=== PATIENT | male | born 1945 | race Caucasian/White ===

== ENCOUNTER 2018-01-20 13:48 | Emergency (ER) | payer MEDICARE, MEDICAID ==
[~2018-01-20] VITALS: Ht 172.7 cm; Wt 98.0 kg
[~2018-01-20 13:48] MED LIST: ALBU8HFA PO; ASPI-1053 PO; BUPR150T8 PO; CANA300T PO; CHOL500044 PO; CLON-527 PO; FENO54TA PO; INSU100C4 SQ; LANTUS SQ; LIRA0.6P2 SUBCUT; LISI2.5T2 PO; METF-950 PO; PANT-47 PO; ROSU20TA PO; TAMS0.4C32 PO; TEMA30CA5 PO
[2018-01-20] MEDS ORDERED: HYDROcodone/acetaminophen 5mg/325mg tablet PO ONE (15:35)
[2018-01-20 16:52] LABS: BASOPHILS # (AUTO) 0.1 X10'3 (0-0.2); BASOPHILS % (AUTO) 1.4 % (0-1); EOSINOPHILS # (AUTO) 0.1 X10'3 (0-0.9); EOSINOPHILS % (AUTO) 1.1 % (0-6); HEMATOCRIT 38.2 % (42.0-52.0); HEMOGLOBIN 12.8 g/dl (14.0-17.9); LYMPHOCYTES # (AUTO) 2.5 X10'3 (1.1-4.8); LYMPHOCYTES % (AUTO) 26.4 % (21-51); MEAN CORPUSCULAR HEMOGLOBIN 28.1 PG (27.0-31.0); MEAN CORPUSCULAR HGB CONC 33.5 % (33.0-36.5); MEAN CORPUSCULAR VOLUME 83.8 FL (78-98); MEAN PLATELET VOLUME 7.1 FL (7.4-10.4); MONOCYTES # (AUTO) 0.8 X10'3 (0-0.9); MONOCYTES % (AUTO) 8.9 % (2-12); NEUTROPHILS % (AUTO) 62.2 % (42-75); PLATELET COUNT 323 X10'3 (140-440); RED BLOOD COUNT 4.55 X10'6 (4.70-6.10); RED CELL DISTRIBUTION WIDTH 13.8 % (11.5-14.5); WHITE BLOOD COUNT 9.6 X10'3 (4.5-11.0)
[2018-01-20 17:02] LABS: INR 1.1 INR; PARTIAL THROMBOPLASTIN TIME 28 SECONDS (22-32); PROTHROMBIN TIME 11.2 SECONDS (9.0-12.0)
[2018-01-20 17:05] LABS: ALANINE AMINOTRANSFERASE 19 U/L (12-78); ALBUMIN 3.4 G/DL (3.4-5.0); ALBUMIN/GLOBULIN RATIO 0.9 (1.1-1.5); ALKALINE PHOSPHATASE 100 IU/L (46-116); ANION GAP 9 (8-16); ASPARTATE AMINO TRANSFERASE 17 U/L (10-37); BILIRUBIN,TOTAL 0.5 MG/DL (0.1-1.0); BLOOD UREA NITROGEN 28 MG/DL (7-18); BUN/CREATININE RATIO 28.3 (5.4-32.0); C-REACTIVE PROTEIN 0.63 MG/DL (0.0-0.5); CHLORIDE 97 MMOL/L (99-107); CREATININE 0.99 MG/DL (0.60-1.10); GLUCOSE 90 MG/DL (70-104); POTASSIUM 4.3 MMOL/L (3.5-5.1); SODIUM 132 MMOL/L (135-145); TOTAL CARBON DIOXIDE 26.1 MMOL/L (24-32); eGFR 75 ML/MIN
[2018-01-20 17:13] LABS: CLARITY,URINE CLEAR (Clear); COLOR,URINE YELLOW (Yellow); GLUCOSE, URINE NEGATIVE (Neg); KETONES,URINE NEGATIVE (Neg); LEUKOCYTE ESTERASE ,URINE NEGATIVE (Neg); NITRITES, URINE NEGATIVE (Neg); OCCULT BLOOD,URINE NEGATIVE (Neg); PH,URINE 5.5 (4.8-8.0); PROTEIN,URINE NEGATIVE (Neg); UROBILINOGEN,URINE 0.2 E.U/dL (0.2-1.0)
[2018-01-20 17:15] LABS: UA COLLECTION TYPE CLN CATCH MIDSTREAM
[2018-01-20] MEDS ORDERED: morphine 4 MG/ML inj SYRINge IV ONE (17:15)
[2018-01-20 17:37] VITALS: BP 117/54
== END 2018-01-20 18:11 | disposition short-term general hospital (02) ==
LOC: ER 13:49
DX: M25.562 Pain in left knee (principal); E78.00 Pure hypercholesterolemia, unspecified; I25.2 Old myocardial infarction; J44.9 Chronic obstructive pulmonary disease, unspecified; Z98.890 Other specified postprocedural states; Z88.5 Allergy status to narcotic agent; Z88.1 Allergy status to other antibiotic agents; Z79.82 Long term (current) use of aspirin; Z79.4 Long term (current) use of insulin; Z79.899 Other long term (current) drug therapy
CPT/HCPCS: 36415; 71045; 73560; 80053; 81003; 85025; 85610; 85651; 85730; 86140; 86885; 86900; 86901; 93005; 96374; 99285; J2270; A4315; J7030

== ENCOUNTER 2018-09-13 03:20 | Emergency (ER) | payer MEDICARE ==
[~2018-09-13] VITALS: Ht 172.7 cm; Wt 106.4 kg
[~2018-09-13 03:20] MED LIST changes: -ROSU20TA PO; +ROSU20TA2 PO
[2018-09-13] MEDS ORDERED: bacitracin 15gm ointment TP ONE (03:40)
[2018-09-13] MEDS ORDERED: TETanus/Pertussis (Acell)/Diphther VAC/PF (Tdap-Adult) 0.5ml syringe IM ONE (03:40)
--- NOTE | 2018-09-13 06:25 | NUR ---
Patient given phone to re call his to pick him up
[2018-09-13 08:17] VITALS: BP 110/72
== END 2018-09-13 08:19 | disposition home or self-care (01) ==
LOC: ER 03:21
DX: S01.111A Laceration without foreign body of right eyelid and periocular area, initial encounter (principal); S51.012A Laceration without foreign body of left elbow, initial encounter; M54.2 Cervicalgia; E78.00 Pure hypercholesterolemia, unspecified; I25.2 Old myocardial infarction; J44.9 Chronic obstructive pulmonary disease, unspecified; Z88.5 Allergy status to narcotic agent; Z88.1 Allergy status to other antibiotic agents; Z79.82 Long term (current) use of aspirin; Z79.4 Long term (current) use of insulin; Z79.899 Other long term (current) drug therapy; Z79.84 Long term (current) use of oral hypoglycemic drugs; Z98.890 Other specified postprocedural states; W06.XXXA Fall from bed, initial encounter; Y93.89 Activity, other specified; Y92.89 Other specified places as the place of occurrence of the external cause; Y99.8 Other external cause status
CPT/HCPCS: 12013; 70450; 72125; 90471; 90715; 99284

== ENCOUNTER 2019-04-22 11:29 | Emergency (ER) | payer MEDICARE ==
[~2019-04-22] VITALS: Ht 172.7 cm; Wt 90.9 kg
[2019-04-22 11:32] VITALS: BP 150/70
--- NOTE | 2019-04-22 12:16 | NUR ---
PT TAKEN TO XRAY VIA GURKANDY BY Lotame.
[2019-04-22] MEDS ORDERED: morphine 4 MG/ML inj SYRINge IV ONE (12:20)
--- NOTE | 2019-04-22 12:50 | NUR ---
relieving RN for lunch, pt to CT
== END 2019-04-22 13:57 | disposition home or self-care (01) ==
LOC: ER 11:29
DX: S00.83XA Contusion of other part of head, initial encounter (principal); M25.512 Pain in left shoulder; M54.2 Cervicalgia; E78.00 Pure hypercholesterolemia, unspecified; I25.2 Old myocardial infarction; J44.9 Chronic obstructive pulmonary disease, unspecified; F32.9 Major depressive disorder, single episode, unspecified; Z90.89 Acquired absence of other organs; Z98.890 Other specified postprocedural states; Z88.5 Allergy status to narcotic agent; Z88.1 Allergy status to other antibiotic agents; Z79.82 Long term (current) use of aspirin; Z79.899 Other long term (current) drug therapy; Z79.4 Long term (current) use of insulin; W06.XXXA Fall from bed, initial encounter; Y93.89 Activity, other specified; Y92.89 Other specified places as the place of occurrence of the external cause; Y99.9 Unspecified external cause status
CPT/HCPCS: 70450; 72125; 72170; 73030; 96374; 99284; J2270

== ENCOUNTER 2022-11-08 15:13 | Inpatient (IN) | payer MEDICARE, OTHER ==
[~2022-11-08] VITALS: Ht 170.2 cm; Wt 68.0 kg
[~2022-11-08 15:13] MED LIST changes: +BUDE10.22 INH; -CANA300T PO; -CLON-527 PO; +CYAN500T9 PO; +CYCL-1 PO; -INSU100C4 SQ; +LACT1CAP26 PO; -LIRA0.6P2 SUBCUT; -LISI2.5T2 PO; -METF-950 PO; -TEMA30CA5 PO
[2022-11-08] MEDS ORDERED: ipratropium/albuterol 3ml nebule NEB ONE (16:10)
[2022-11-08] MEDS ORDERED: methylPREDNISolone sod succ 125mg/2ml vial IV ONE (16:10)
[2022-11-08 16:59] LABS: BASOPHILS % (AUTO) 0.6 % (0-1); EOSINOPHILS # (AUTO) 0.1 X10'3 (0-0.9); EOSINOPHILS % (AUTO) 1.9 % (0-6); HEMATOCRIT 34.4 % (42.0-52.0); LYMPHOCYTES # (AUTO) 1.5 X10'3 (1.1-4.8); LYMPHOCYTES % (AUTO) 26.1 % (21-51); MEAN CORPUSCULAR VOLUME 87.5 FL (78-98); MONOCYTES # (AUTO) 0.5 X10'3 (0-0.9); MONOCYTES % (AUTO) 9.2 % (2-12); NEUTROPHILS # (AUTO) 3.6 X10'3 (1.8-7.7); NEUTROPHILS % (AUTO) 62.2 % (42-75); PLATELET COUNT 285 X10'3 (140-440); RED BLOOD COUNT 3.93 X10'6 (4.70-6.10); WHITE BLOOD COUNT 5.8 X10'3 (4.5-11.0)
[2022-11-08 17:20] LABS: ALANINE AMINOTRANSFERASE 13 U/L (12-78); ALBUMIN 2.9 G/DL (3.4-5.0); ALBUMIN/GLOBULIN RATIO 0.7 (1.1-1.5); ALKALINE PHOSPHATASE 71 IU/L (46-116); ANION GAP 6 (8-16); ASPARTATE AMINO TRANSFERASE 14 U/L (10-37); BILIRUBIN,TOTAL 0.5 MG/DL (0.1-1.0); BLOOD UREA NITROGEN 19 MG/DL (7-18); BUN/CREATININE RATIO 34.5 (10.0-20.0); CALCIUM 8.6 MG/DL (8.5-10.1); CHLORIDE 106 MMOL/L (99-107); CREATININE 0.55 MG/DL (0.60-1.10); GLUCOSE 178 MG/DL (70-104); POTASSIUM 3.8 MMOL/L (3.5-5.1); SODIUM 144 MMOL/L (135-145); TOTAL CARBON DIOXIDE 32.4 MMOL/L (24-32); TOTAL PROTEIN 6.9 G/DL (6.4-8.2); eGFR > 90 ML/MIN
[2022-11-08] MEDS ORDERED: cephalexin 250mg capsule PO ONE (18:20)
[2022-11-08] MEDS ORDERED: furosemide 10 MG/1 ML 10ml inj IV ONE (18:20)
[2022-11-08] MEDS ORDERED: ondansetron/PF 4mg/2ml inj IV PRN (20:40)
[2022-11-08] MEDS ORDERED: PERFLUTREN PROTEIN-A MICROSPHR (Optison) 0.22 MG/ML 3ML VIAL IV ONE (20:40)
[2022-11-08] MEDS ORDERED: potassium Cl 40MEQ/1/2NS 520ml 520 ML IV PRN (20:40)
[2022-11-08] MEDS ORDERED: mag hydrox/Alum hydrox/simeth 30ml oral suspension PO PRN (20:40)
[2022-11-08] MEDS ORDERED: DEXTROSE 15 GM of carb/4 tabs (each vial/BOTTLE has 4 tablets) PO PRN ×2 (20:40)
[2022-11-08] MEDS ORDERED: magnesium 4gm in 100ml NS 100 ML IV PRN (20:40)
[2022-11-08] MEDS ORDERED: potassium Cl 20 mEq SR tablet PO PRN ×2 (20:40)
[2022-11-08] MEDS ORDERED: dextrose 50%-water 50ml dispensing syringe IV PRN ×2 (20:40)
[2022-11-08] MEDS ORDERED: glucagon, human recombinant 1mg kit SUBCUT PRN (20:40)
[2022-11-08] MEDS ORDERED: albuterol 2.5 MG/3 ML nebule NEB PRN (20:40)
[2022-11-08] MEDS ORDERED: acetaminophen 325mg tablet PO PRN (20:40)
[2022-11-08] MEDS ORDERED: MESSAGE TO PHARMACY PO ONE (20:40)
[2022-11-08] MEDS: methylPREDNISolone sod succ/PF 40mg inj. IV SCH (21:00)
[2022-11-08] MEDS: insulin glargine (Lantus) pen - multi-dose SQ SCH (21:24)
--- NOTE | 2022-11-09 01:19 | NUR ---
CHEMICAL BLENDER fed the patient, he was very hungry. Said he hadn't eaten all day.
[2022-11-09] MEDS ORDERED: ASPI-1071 PO (01:28)
[2022-11-09] MEDS ORDERED: ROSU5TAB12 PO (01:28)
[2022-11-09] MEDS ORDERED: METF-516 PO (01:30)
[2022-11-09] MEDS ORDERED: cyclobenzaprine 10mg tablet PO PRN (01:40)
[2022-11-09 07:38] LABS: BASOPHILS % (AUTO) 0.2 % (0-1); EOSINOPHILS % (AUTO) 0 % (0-6); HEMATOCRIT 34.9 % (42.0-52.0); HEMOGLOBIN 11.2 g/dl (14.0-17.9); LYMPHOCYTES # (AUTO) 0.6 X10'3 (1.1-4.8); LYMPHOCYTES % (AUTO) 11.6 % (21-51); MEAN CORPUSCULAR HEMOGLOBIN 27.7 PG (27.0-31.0); MEAN CORPUSCULAR VOLUME 86.3 FL (78-98); MONOCYTES # (AUTO) 0.1 X10'3 (0-0.9); MONOCYTES % (AUTO) 1.6 % (2-12); NEUTROPHILS # (AUTO) 4.7 X10'3 (1.8-7.7); NEUTROPHILS % (AUTO) 86.6 % (42-75); PLATELET COUNT 320 X10'3 (140-440); RED BLOOD COUNT 4.04 X10'6 (4.70-6.10); RED CELL DISTRIBUTION WIDTH 14.9 % (11.5-14.5); WHITE BLOOD COUNT 5.4 X10'3 (4.5-11.0)
[2022-11-09] MEDS: ipratropium/albuterol 3ml nebule NEB PRN ×2 (07:58→20:35)
--- NOTE | 2022-11-09 07:59 | NUR ---
Patient in room ED 13. I have received report from Deya and had the opportunity to ask questions and assume patient care.
[2022-11-09] MEDS ORDERED: PERFLUTREN PROTEIN-A MICROSPHR (Optison) 0.22 MG/ML 3ML VIAL IV ONE (08:00)
[2022-11-09] MEDS: K and/or MAG REPLACEMENT MC SCH ×2 (08:00→19:40)
[2022-11-09] MEDS: docusate sod 100mg capsule PO SCH ×2 (08:00→19:40)
[2022-11-09 08:11] LABS: ALANINE AMINOTRANSFERASE 13 U/L (12-78); ALBUMIN 2.7 G/DL (3.4-5.0); ALBUMIN/GLOBULIN RATIO 0.7 (1.1-1.5); ALKALINE PHOSPHATASE 66 IU/L (46-116); ANION GAP 9 (8-16); ASPARTATE AMINO TRANSFERASE 17 U/L (10-37); BILIRUBIN,TOTAL 0.5 MG/DL (0.1-1.0); BLOOD UREA NITROGEN 16 MG/DL (7-18); BUN/CREATININE RATIO 28.1 (10.0-20.0); CALCIUM 8.6 MG/DL (8.5-10.1); CHLORIDE 102 MMOL/L (99-107); CREATININE 0.57 MG/DL (0.60-1.10); GLUCOSE 237 MG/DL (70-104); MAGNESIUM 1.4 MG/DL (1.5-2.4); POTASSIUM 3.8 MMOL/L (3.5-5.1); SODIUM 141 MMOL/L (135-145); TOTAL CARBON DIOXIDE 30.3 MMOL/L (24-32); TOTAL PROTEIN 6.8 G/DL (6.4-8.2); eGFR > 90 ML/MIN
[2022-11-09 08:46] LABS: HEMOGLOBIN A1C 7.3 % (4.5-6.2)
[2022-11-09] MEDS: fenofibrate 48mg tablet PO SCH (08:46)
[2022-11-09] MEDS: cyanocobalamin 500mcg tablet PO SCH (08:46)
[2022-11-09] MEDS: cholecalciferol (vitamin D3) 1,000 unit (25mcg) tablet PO SCH (08:47)
[2022-11-09] MEDS: pantoprazole 40mg Tablet.DR PO SCH (08:47)
[2022-11-09] MEDS: methylPREDNISolone sod succ/PF 40mg inj. IV SCH ×3 (08:48→20:01)
[2022-11-09 08:50] VITALS: BP 100/60
[2022-11-09] MEDS: furosemide 20 MG/2 ML vial IV SCH ×2 (09:37→20:01)
[2022-11-09 10:00] VITALS: BP 105/66
[2022-11-09] MEDS: CefTRIAXone/D5W-Rocephin 1gm 50 ML IV SCH (12:22)
[2022-11-09] MEDS: magnesium Cl slow-release 64mg tablet PO PRN ×2 (12:25→20:04)
--- NOTE | 2022-11-09 12:46 | NUR ---
PRESSURE ULCER EDUCATION: DEFINITION: A pressure ulcer is an area of skin that breaks down when you stay in one position too long. The constant pressure against the skin reduces the blood flow to that area and the affected tissue dies. CAUSES: "Being bedridden or in a wheelchair "Fragile skin "Having a chronic condition, such as diabetes or vascular disease "Inability to move certain parts of your body without assistance "Older age "Incontinence of urine or stool SYMPTOMS: "A reddened area that DOES NOT turn white when pressed on - this can be the beginning of a pressure ulcer "A blister, deep sore or a crater - these can be advanced pressure ulcers FIRST AID: "Relieve the pressure on this area "Keep the area clean and dry "Call your primary doctor if you see any of the above symptoms "DO NOT massage the area "DO NOT use a donut shaped or ring shaped pillow- these actually interfere with the blood flow and cause complications PREVENTION: "Check for pressure ulcers everyday "Change position at least every two hours to relieve pressure "Use items that help relieve pressure- pillows, sheepskin, foam padding, and powders. "Keep skin clean and dry "Eat healthy well balanced meals "Exercise daily IF YOU SEE ANY OF THESE SYMPTOMS WHILE IN THE HOSPITAL - TELL YOUR NURSE IMMEDIATELY. IF YOU SEE ANY OF THESE SYMPTOMS WHILE AT HOME OR HAVE ANY QUESTIONS OR CONCERNS ABOUT PRESSURE ULCERS - CALL YOUR PRIMARY DOCTOR IMMEDIATELY. Addendum: 11/09/22 at 1248 by Maite Santo RN Amended: Links added.
[2022-11-09] MEDS: insulin Lispro (HumaLOG) vial - multi-dose SQ SCH ×2 (13:18→22:18)
[2022-11-09 18:00] VITALS: BP 105/63
--- NOTE | 2022-11-09 18:49 | NUR ---
Problems reprioritized. Patient report given, questions answered & plan of care reviewed with Stefany.
[2022-11-09] MEDS: enoxaparin 40mg/0.4ml syringe SQ SCH (20:02)
[2022-11-09] MEDS: aspirin 81mg, enteric-coated 1 TAB TABLET.DR PO SCH (20:03)
[2022-11-09] MEDS: ROSUVASTATIN CALCIUM 5 MG TABLET PO SCH (20:03)
[2022-11-09 22:00] VITALS: BP 106/60
[2022-11-09] MEDS: insulin glargine (Lantus) pen - multi-dose SQ SCH (22:49)
[2022-11-10 05:00] VITALS: BP 109/74
--- NOTE | 2022-11-10 06:33 | NUR ---
Problems reprioritized. Patient report given, questions answered & plan of care reviewed with Ana OLIVER. Addendum: 11/10/22 at 0633 by Stefany Rose RN Amended: Links added.
--- NOTE | 2022-11-10 06:36 | NUR ---
Patient in room ORTHO 4014. I have received report from Mascoma and had the opportunity to ask questions and assume patient care.
[2022-11-10 07:05] LABS: BASOPHILS % (AUTO) 0.1 % (0-1); EOSINOPHILS % (AUTO) 0.1 % (0-6); HEMATOCRIT 32.6 % (42.0-52.0); HEMOGLOBIN 10.6 g/dl (14.0-17.9); LYMPHOCYTES # (AUTO) 0.8 X10'3 (1.1-4.8); LYMPHOCYTES % (AUTO) 6.2 % (21-51); MEAN CORPUSCULAR HGB CONC 32.5 g/dL (33.0-36.5); MEAN PLATELET VOLUME 7.9 FL (7.4-10.4); MONOCYTES # (AUTO) 0.5 X10'3 (0-0.9); MONOCYTES % (AUTO) 3.7 % (2-12); NEUTROPHILS # (AUTO) 11.5 X10'3 (1.8-7.7); NEUTROPHILS % (AUTO) 89.9 % (42-75); PLATELET COUNT 301 X10'3 (140-440); RED BLOOD COUNT 3.78 X10'6 (4.70-6.10); RED CELL DISTRIBUTION WIDTH 14.8 % (11.5-14.5); WHITE BLOOD COUNT 12.7 X10'3 (4.5-11.0)
[2022-11-10] MEDS: K and/or MAG REPLACEMENT MC SCH ×2 (07:10→19:28)
[2022-11-10 07:25] LABS: ALANINE AMINOTRANSFERASE 13 U/L (12-78); ALBUMIN 2.7 G/DL (3.4-5.0); ALBUMIN/GLOBULIN RATIO 0.7 (1.1-1.5); ALKALINE PHOSPHATASE 71 IU/L (46-116); ANION GAP 8 (8-16); ASPARTATE AMINO TRANSFERASE 16 U/L (10-37); BILIRUBIN,TOTAL 0.3 MG/DL (0.1-1.0); BLOOD UREA NITROGEN 26 MG/DL (7-18); BUN/CREATININE RATIO 38.2 (10.0-20.0); CALCIUM 8.7 MG/DL (8.5-10.1); CHLORIDE 101 MMOL/L (99-107); CREATININE 0.68 MG/DL (0.60-1.10); GLUCOSE 257 MG/DL (70-104); MAGNESIUM 1.6 MG/DL (1.5-2.4); POTASSIUM 3.9 MMOL/L (3.5-5.1); SODIUM 140 MMOL/L (135-145); TOTAL CARBON DIOXIDE 31.2 MMOL/L (24-32); TOTAL PROTEIN 6.4 G/DL (6.4-8.2); eGFR > 90 ML/MIN
[2022-11-10] MEDS: docusate sod 100mg capsule PO SCH ×2 (08:00→20:00)
--- NOTE | 2022-11-10 08:50 | NUR ---
Per EMR pt with T2DM, well controlled for age with A1c 7.3%. DM education not warranted at this time. Will continue to follow. Addendum: 11/10/22 at [address] Amended: Links added.
[2022-11-10] MEDS: CefTRIAXone/D5W-Rocephin 1gm 50 ML IV SCH (08:55)
[2022-11-10] MEDS: furosemide 20 MG/2 ML vial IV SCH ×2 (08:55→20:40)
[2022-11-10] MEDS: cholecalciferol (vitamin D3) 1,000 unit (25mcg) tablet PO SCH (08:55)
[2022-11-10] MEDS: methylPREDNISolone sod succ/PF 40mg inj. IV SCH ×3 (08:55→20:41)
[2022-11-10] MEDS: pantoprazole 40mg Tablet.DR PO SCH (08:56)
[2022-11-10] MEDS: fenofibrate 48mg tablet PO SCH (08:56)
[2022-11-10] MEDS: cyanocobalamin 500mcg tablet PO SCH (08:56)
[2022-11-10 10:00] VITALS: BP 97/62
[2022-11-10] MEDS: ipratropium/albuterol 3ml nebule NEB PRN ×2 (11:11→20:23)
[2022-11-10] MEDS: insulin Lispro (HumaLOG) vial - multi-dose SQ SCH ×3 (13:30→19:00)
[2022-11-10 18:00] VITALS: BP 101/65
--- NOTE | 2022-11-10 18:37 | NUR ---
Problems reprioritized. Patient report given, questions answered & plan of care reviewed with Kaylie.
[2022-11-10] MEDS: aspirin 81mg, enteric-coated 1 TAB TABLET.DR PO SCH (20:40)
[2022-11-10] MEDS: guaiFENesin ER 600mg tablet PO SCH (20:40)
[2022-11-10] MEDS: ROSUVASTATIN CALCIUM 5 MG TABLET PO SCH (20:40)
[2022-11-10] MEDS: enoxaparin 40mg/0.4ml syringe SQ SCH (20:41)
[2022-11-10] MEDS: insulin glargine (Lantus) pen - multi-dose SQ SCH (21:15)
[2022-11-10 22:00] VITALS: BP 89/52
[2022-11-11 06:00] VITALS: BP 101/57
--- NOTE | 2022-11-11 06:16 | NUR ---
Problems reprioritized. Patient report given, questions answered & plan of care reviewed with MELODY Groves.
[2022-11-11 07:49] LABS: ALBUMIN 2.8 G/DL (3.4-5.0); ANION GAP 8 (8-16); BILIRUBIN,TOTAL 0.4 MG/DL (0.1-1.0); BLOOD UREA NITROGEN 27 MG/DL (7-18); BUN/CREATININE RATIO 46.6 (10.0-20.0); CALCIUM 8.6 MG/DL (8.5-10.1); CHLORIDE 97 MMOL/L (99-107); CREATININE 0.58 MG/DL (0.60-1.10); GLUCOSE 172 MG/DL (70-104); MAGNESIUM 1.7 MG/DL (1.5-2.4); POTASSIUM 4.3 MMOL/L (3.5-5.1); SODIUM 137 MMOL/L (135-145); TOTAL CARBON DIOXIDE 32.3 MMOL/L (24-32); TOTAL PROTEIN 6.8 G/DL (6.4-8.2); eGFR > 90 ML/MIN
[2022-11-11 07:50] LABS: ALANINE AMINOTRANSFERASE 16 U/L (12-78); ALBUMIN/GLOBULIN RATIO 0.7 (1.1-1.5); ALKALINE PHOSPHATASE 59 IU/L (46-116); ASPARTATE AMINO TRANSFERASE 18 U/L (10-37)
[2022-11-11 07:52] LABS: BASOPHILS % (AUTO) 0 % (0-1); EOSINOPHILS % (AUTO) 0 % (0-6); HEMATOCRIT 35.5 % (42.0-52.0); HEMOGLOBIN 11.4 g/dl (14.0-17.9); LYMPHOCYTES # (AUTO) 0.7 X10'3 (1.1-4.8); LYMPHOCYTES % (AUTO) 7.2 % (21-51); MEAN CORPUSCULAR HEMOGLOBIN 27.8 PG (27.0-31.0); MEAN CORPUSCULAR HGB CONC 32.2 g/dL (33.0-36.5); MEAN CORPUSCULAR VOLUME 86.4 FL (78-98); MEAN PLATELET VOLUME 7.3 FL (7.4-10.4); MONOCYTES # (AUTO) 0.3 X10'3 (0-0.9); MONOCYTES % (AUTO) 3.6 % (2-12); NEUTROPHILS # (AUTO) 8.7 X10'3 (1.8-7.7); NEUTROPHILS % (AUTO) 89.2 % (42-75); PLATELET COUNT 334 X10'3 (140-440); RED CELL DISTRIBUTION WIDTH 15.1 % (11.5-14.5); WHITE BLOOD COUNT 9.8 X10'3 (4.5-11.0)
[2022-11-11] MEDS: K and/or MAG REPLACEMENT MC SCH ×2 (08:00→19:49)
[2022-11-11 08:19] LABS: % IRON SATURATION 16 % (11-46); FERRITIN 169 NG/ML (26-388); IRON 43 UG/DL (53-167); TOTAL IRON BINDING CAPACITY 263 UG/DL (259-388)
[2022-11-11] MEDS: ipratropium/albuterol 3ml nebule NEB PRN ×2 (08:58→20:30)
[2022-11-11] MEDS: methylPREDNISolone sod succ/PF 40mg inj. IV SCH ×3 (09:10→21:19)
[2022-11-11] MEDS: cyanocobalamin 500mcg tablet PO SCH (09:10)
[2022-11-11] MEDS: furosemide 20 MG/2 ML vial IV SCH ×2 (09:10→19:51)
[2022-11-11] MEDS: cholecalciferol (vitamin D3) 1,000 unit (25mcg) tablet PO SCH (09:10)
[2022-11-11] MEDS: fenofibrate 48mg tablet PO SCH (09:11)
[2022-11-11] MEDS: guaiFENesin ER 600mg tablet PO SCH ×2 (09:11→19:51)
[2022-11-11] MEDS: pantoprazole 40mg Tablet.DR PO SCH (09:11)
[2022-11-11] MEDS: docusate sod 100mg capsule PO SCH ×2 (09:11→19:53)
[2022-11-11] MEDS: CefTRIAXone/D5W-Rocephin 1gm 50 ML IV SCH (09:12)
[2022-11-11] MEDS: insulin Lispro (HumaLOG) vial - multi-dose SQ SCH ×4 (09:33→21:54)
--- NOTE | 2022-11-11 09:50 | NUR ---
Patient in room ORTHO 4014. I have received report from Yaneli Pimentel RN and had the opportunity to ask questions and assume patient care.
[2022-11-11 10:00] VITALS: BP 110/52
--- NOTE | 2022-11-11 10:45 | NUR ---
Cortney OLIVER taking over this patient.
--- NOTE | 2022-11-11 11:15 | NUR ---
Physical assessment charting done by Marysol OLIVERsurgical supplies sterilizer, agreed with findings. Addendum: 11/11/22 at 1116 by Cortney Yu RN PA done by Yaneli Ferrara RN.
[2022-11-11 18:00] VITALS: BP 103/45
--- NOTE | 2022-11-11 18:49 | NUR ---
Problems reprioritized. Patient report given, questions answered & plan of care reviewed with Kaylie Jefferson.
[2022-11-11] MEDS: aspirin 81mg, enteric-coated 1 TAB TABLET.DR PO SCH (19:51)
[2022-11-11] MEDS: ROSUVASTATIN CALCIUM 5 MG TABLET PO SCH (19:52)
[2022-11-11] MEDS: enoxaparin 40mg/0.4ml syringe SQ SCH (19:52)
[2022-11-11] MEDS: insulin glargine (Lantus) pen - multi-dose SQ SCH (21:53)
[2022-11-11 22:00] VITALS: BP 89/51
--- NOTE | 2022-11-12 06:25 | NUR ---
Problems reprioritized. Patient report given, questions answered & plan of care reviewed with MELODY Angulo and MELODY Alvarez.
--- NOTE | 2022-11-12 06:45 | NUR ---
Patient in room ORTHO 4014. I have received report from KARLA OLIVER and had the opportunity to ask questions and assume patient care.
[2022-11-12 06:47] LABS: BASOPHILS % (AUTO) 0.2 % (0-1); EOSINOPHILS % (AUTO) 0 % (0-6); HEMOGLOBIN 12.1 g/dl (14.0-17.9); LYMPHOCYTES # (AUTO) 0.8 X10'3 (1.1-4.8); LYMPHOCYTES % (AUTO) 8.3 % (21-51); MEAN CORPUSCULAR HEMOGLOBIN 27.9 PG (27.0-31.0); MEAN CORPUSCULAR HGB CONC 32.7 g/dL (33.0-36.5); MEAN CORPUSCULAR VOLUME 85.5 FL (78-98); MEAN PLATELET VOLUME 7.6 FL (7.4-10.4); MONOCYTES # (AUTO) 0.5 X10'3 (0-0.9); MONOCYTES % (AUTO) 5.1 % (2-12); NEUTROPHILS # (AUTO) 8.5 X10'3 (1.8-7.7); NEUTROPHILS % (AUTO) 86.4 % (42-75); PLATELET COUNT 331 X10'3 (140-440); RED BLOOD COUNT 4.33 X10'6 (4.70-6.10); RED CELL DISTRIBUTION WIDTH 15.2 % (11.5-14.5); WHITE BLOOD COUNT 9.8 X10'3 (4.5-11.0)
[2022-11-12 06:50] LABS: ALANINE AMINOTRANSFERASE 20 U/L (12-78); ALBUMIN 3.1 G/DL (3.4-5.0); ALBUMIN/GLOBULIN RATIO 0.8 (1.1-1.5); ALKALINE PHOSPHATASE 77 IU/L (46-116); ANION GAP 8 (8-16); ASPARTATE AMINO TRANSFERASE 19 U/L (10-37); BILIRUBIN,TOTAL 0.4 MG/DL (0.1-1.0); BLOOD UREA NITROGEN 26 MG/DL (7-18); BUN/CREATININE RATIO 37.7 (10.0-20.0); CALCIUM 8.8 MG/DL (8.5-10.1); CHLORIDE 95 MMOL/L (99-107); CREATININE 0.69 MG/DL (0.60-1.10); GLUCOSE 196 MG/DL (70-104); MAGNESIUM 1.7 MG/DL (1.5-2.4); POTASSIUM 4.3 MMOL/L (3.5-5.1); SODIUM 137 MMOL/L (135-145); TOTAL CARBON DIOXIDE 33.7 MMOL/L (24-32); TOTAL PROTEIN 7.1 G/DL (6.4-8.2); eGFR > 90 ML/MIN
[2022-11-12 06:58] VITALS: BP 92/56
[2022-11-12] MEDS: ipratropium/albuterol 3ml nebule NEB PRN (07:15)
[2022-11-12] MEDS: K and/or MAG REPLACEMENT MC SCH (08:00)
[2022-11-12] MEDS: furosemide 20 MG/2 ML vial IV SCH (08:49)
[2022-11-12] MEDS: methylPREDNISolone sod succ/PF 40mg inj. IV SCH ×2 (08:49→13:03)
[2022-11-12] MEDS: cholecalciferol (vitamin D3) 1,000 unit (25mcg) tablet PO SCH (08:49)
[2022-11-12] MEDS: guaiFENesin ER 600mg tablet PO SCH (08:49)
[2022-11-12] MEDS: fenofibrate 48mg tablet PO SCH (08:50)
[2022-11-12] MEDS: pantoprazole 40mg Tablet.DR PO SCH (08:50)
[2022-11-12] MEDS: docusate sod 100mg capsule PO SCH (08:50)
[2022-11-12] MEDS: cyanocobalamin 500mcg tablet PO SCH (08:50)
[2022-11-12] MEDS: CefTRIAXone/D5W-Rocephin 1gm 50 ML IV SCH (08:51)
[2022-11-12] MEDS: insulin Lispro (HumaLOG) vial - multi-dose SQ SCH (09:15)
[2022-11-12 10:41] VITALS: BP 101/54
--- NOTE | 2022-11-12 13:34 | NUR ---
PAGER ID: [phone] MESSAGE: [id number] RE: [id number] Loren LIU PATIENT HAS ROUTINE DISCHARGE BUT NOTHING IN THE DISCHARGE HAS BEEN COMPLETED AT THIS TIME. THANKS NEREIDA.
--- NOTE | 2022-11-12 14:08 | NUR ---
PAGER ID: [phone] MESSAGE: MESSAGE: DOM [id number] RE: [id number] Loren LIU PATIENT HAS ROUTINE DISCHARGE BUT NOTHING IN THE DISCHARGE HAS BEEN COMPLETED AT THIS TIME, DOES NOT HAVE PATIENT AND CANT REACH OTHER RESIDENT. THANKS NEREIDA.
[2022-11-12] MEDS ORDERED: AZI25OT PO (14:43)
[2022-11-12] MEDS ORDERED: METH4TAB81 PO (14:43)
[2022-11-12] MEDS ORDERED: FURO-150 PO (14:43)
[2022-11-12] MEDS ORDERED: GUAI600T45 PO (14:43)
[2022-11-12] MEDS ORDERED: IPRA3AMP9 NEB (14:43)
[2022-11-12] MEDS ORDERED: FLUT1BLS16 IH (16:26)
--- NOTE | 2022-11-12 17:00 | NUR ---
[place] documentation: I have reviewed all interventions, assessments performed and documented by Shady OLIVER. [place] Medication Administration: For this medication-pass time frame, all medication were reviewed, dispensed, administered and documented per hospital policy by Shady OLIVER.
--- NOTE | 2022-11-12 17:57 | NUR ---
PT. ALERT AND ORIENTATED UPON DISCHARGE, IV CANNULA WHOLE AND INTACT UPON REMOVAL, ACCOMPANIED BY A NEIGHBOR FRIEND WHO DROVE HIM HOME, PT. AND FRIEND EDUCATED TO FOLLOW UP WITH PROVIDER, NEW MEDICATIONS, AND S/S OF COPD AND HEART FAILURE. PT. LEFT WITH PHONE AND NUCLEAR PHYSICS PROFESSOR.
== END 2022-11-12 17:56 | disposition home health service (06) | DRG 291 ==
LOC: ER 15:14 → ED HOLD 20:46 → ORTHO 4S 11-09 08:30
PROVIDERS: ADMIT Family Medicine; ATTEND Internal Medicine
DX: I11.0 Hypertensive heart disease with heart failure (principal); I50.23 Acute on chronic systolic (congestive) heart failure; J96.20 Acute and chronic respiratory failure, unspecified whether with hypoxia or hypercapnia; J44.1 Chronic obstructive pulmonary disease with (acute) exacerbation; L03.115 Cellulitis of right lower limb; Z20.822 Contact with and (suspected) exposure to COVID-19; Z66 Do not resuscitate; E11.9 Type 2 diabetes mellitus without complications; E78.00 Pure hypercholesterolemia, unspecified; I87.2 Venous insufficiency (chronic) (peripheral); F17.210 Nicotine dependence, cigarettes, uncomplicated; I07.1 Rheumatic tricuspid insufficiency; F32.A Depression, unspecified; K21.9 Gastro-esophageal reflux disease without esophagitis; N40.0 Benign prostatic hyperplasia without lower urinary tract symptoms; Z79.84 Long term (current) use of oral hypoglycemic drugs; I25.2 Old myocardial infarction; Z88.5 Allergy status to narcotic agent; Z88.1 Allergy status to other antibiotic agents; Z79.899 Other long term (current) drug therapy; Z71.6 Tobacco abuse counseling; Z79.82 Long term (current) use of aspirin
CPT/HCPCS: 36415; 70450; 71045; 80053; 82607; 82728; 82948; 83036; 83540; 83550; 83735; 83880; 84145; 84484; 85025; 87081; 87811; 93306; 94640; 94760; 97161; 97530; 99285; A4349; A4615; A6250; G0378; J0696; J1650; J1815; J1940; J2920; J2930

== ENCOUNTER 2023-02-04 17:50 | Inpatient (IN) | payer MEDICARE, SELFPAY ==
[~2023-02-04] VITALS: Ht 170.2 cm; Wt 89.7 kg
[~2023-02-04 17:50] MED LIST changes: -ALBU8HFA PO; -ASPI-1053 PO; +ASPI-1071 PO; -BUDE10.22 INH; -BUPR150T8 PO; +FLUT1BLS16 IH; +GUAI600T45 PO; +IPRA3AMP9 NEB; -LACT1CAP26 PO; -LANTUS SQ; +METF-516 PO; +METH4TAB81 PO; -ROSU20TA2 PO; +ROSU5TAB12 PO; -TAMS0.4C32 PO
[2023-02-04 18:47] LABS: BASOPHILS # (AUTO) 0.1 X10'3 (0-0.2); HEMATOCRIT 36.1 % (42.0-52.0); HEMOGLOBIN 11.7 g/dl (14.0-17.9); MEAN CORPUSCULAR HGB CONC 32.4 g/dL (33.0-36.5); MONOCYTES # (AUTO) 0.5 X10'3 (0-0.9); WHITE BLOOD COUNT 5.9 X10'3 (4.5-11.0)
[2023-02-04 18:48] LABS: BASOPHILS % (AUTO) 0.9 % (0-1); EOSINOPHILS # (AUTO) 0.1 X10'3 (0-0.9); LYMPHOCYTES % (AUTO) 16.5 % (21-51); MEAN CORPUSCULAR HEMOGLOBIN 28.1 PG (27.0-31.0); MEAN CORPUSCULAR VOLUME 86.8 FL (78-98); MEAN PLATELET VOLUME 7.3 FL (7.4-10.4); MONOCYTES % (AUTO) 9.3 % (2-12); NEUTROPHILS # (AUTO) 4.2 X10'3 (1.8-7.7); NEUTROPHILS % (AUTO) 71.3 % (42-75); PLATELET COUNT 275 X10'3 (140-440); RED BLOOD COUNT 4.16 X10'6 (4.70-6.10); RED CELL DISTRIBUTION WIDTH 15.8 % (11.5-14.5)
[2023-02-04 18:58] VITALS: PULSE 102; RESP 31; O2SAT 95
[2023-02-04 19:15] LABS: ALANINE AMINOTRANSFERASE 37 U/L (12-78); ALBUMIN 3.1 G/DL (3.4-5.0); ALBUMIN/GLOBULIN RATIO 0.8 (1.1-1.5); ALKALINE PHOSPHATASE 71 IU/L (46-116); ANION GAP 5 (8-16); ASPARTATE AMINO TRANSFERASE 17 U/L (10-37); BILIRUBIN,TOTAL 0.8 MG/DL (0.1-1.0); BLOOD UREA NITROGEN 16 MG/DL (7-18); BUN/CREATININE RATIO 30.2 (10.0-20.0); CHLORIDE 102 MMOL/L (99-107); CREATININE 0.53 MG/DL (0.60-1.10); GLUCOSE 166 MG/DL (70-104); POTASSIUM 4.6 MMOL/L (3.5-5.1); SODIUM 141 MMOL/L (135-145); TOTAL CARBON DIOXIDE 33.6 MMOL/L (24-32); TOTAL PROTEIN 6.8 G/DL (6.4-8.2); eCRCL 113 ML/MIN; eGFR > 90 ML/MIN
[2023-02-04 19:21] LABS: PRO BRAIN NATRIURETIC PEPTIDE 8493 PG/ML (0-450)
[2023-02-04] MEDS ORDERED: LORazepam 2 mg/ml vial IV ONE (19:25)
[2023-02-04] MEDS ORDERED: ipratropium/albuterol 3ml nebule NEB PRN (19:45)
[2023-02-04] MEDS ORDERED: hydrALAZINE 20mg/ml inj. IV PRN (19:45)
[2023-02-04] MEDS ORDERED: furosemide 10 MG/1 ML 10ml inj IV SCH (19:45)
--- NOTE | 2023-02-04 19:48 | NUR ---
1939 PT BIPAP TUBING CAME DISCONNECTED, KEELEY OLIVER REPLACED TUBING AND MONITORED PT WHO BECAME VERY ANXIOUS, BIPAP REMOVED, REPLACED WITH 5L NC, SAO2 UP TO HIGH 90'2, AWARE AND REC'D ORDER FOR ATIVAN R/T PT'S ANXIETY LEVEL
[2023-02-04] MEDS: CefTRIAXone/D5W-Rocephin 1gm 50 ML IV SCH (19:55)
[2023-02-04] MEDS ORDERED: magnesium Cl slow-release 64mg tablet PO PRN (20:00)
[2023-02-04] MEDS ORDERED: potassium Cl 20 mEq SR tablet PO PRN ×2 (20:00)
[2023-02-04] MEDS ORDERED: potassium Cl 40MEQ/1/2NS 520ml 520 ML IV PRN (20:00)
[2023-02-04] MEDS: K and/or MAG REPLACEMENT MC SCH (20:00)
[2023-02-04] MEDS ORDERED: magnesium 2GM in 50ml NS 50 ML IV PRN (20:00)
[2023-02-04] MEDS: docusate sod 100mg capsule PO SCH (20:00)
[2023-02-04] MEDS ORDERED: ondansetron/PF 4mg/2ml inj IV PRN (20:00)
[2023-02-04] MEDS ORDERED: magnesium 4gm in 100ml NS 100 ML IV PRN (20:00)
[2023-02-04] MEDS ORDERED: HYDROcodone/acetaminophen 10/325mg tab PO PRN (20:00)
[2023-02-04] MEDS ORDERED: morphine 2 MG/ML inj. syringe IV PRN (20:00)
[2023-02-04] MEDS ORDERED: magnesium hydroxide 30ml (MOM) UD suspension PO PRN (20:00)
[2023-02-04] MEDS ORDERED: mag hydrox/Alum hydrox/simeth 30ml oral suspension PO PRN (20:00)
[2023-02-04] MEDS ORDERED: acetaminophen 325mg tablet PO PRN (20:00)
[2023-02-04] MEDS ORDERED: glucagon, human recombinant 1mg kit SUBCUT PRN (20:05)
[2023-02-04] MEDS ORDERED: DEXTROSE 15 GM of carb/4 tabs (each vial/BOTTLE has 4 tablets) PO PRN ×2 (20:05)
[2023-02-04] MEDS ORDERED: dextrose 50%-water 50ml dispensing syringe IV PRN (20:05)
[2023-02-04] MEDS ORDERED: MESSAGE TO PHARMACY PO ONE (20:05)
[2023-02-04 20:21] LABS: HEMOGLOBIN A1C 7.5 % (4.5-6.2)
[2023-02-04] MEDS: ipratropium/albuterol 3ml nebule NEB PRN (20:23)
[2023-02-04 20:24] VITALS: PULSE 102; RESP 24; O2SAT 100
[2023-02-04 20:32] VITALS: PULSE 103; RESP 24
[2023-02-04] MEDS: insulin glargine (Lantus) pen - multi-dose SQ SCH (21:40)
[2023-02-04 23:02] VITALS: BP 109/83; PULSE 106; RESP 18; TEMP 98.4; O2SAT 94
[2023-02-04] MEDS ORDERED: IPRA3AMP31 NEB (23:23)
[2023-02-04] MEDS ORDERED: FLUT1BLS16 PO (23:23)
[2023-02-04] MEDS ORDERED: GUAI600T45 PO (23:26)
[2023-02-04] MEDS ORDERED: FURO-150 PO (23:28)
[2023-02-04] MEDS ORDERED: ALBU2.5V10 PO (23:28)
--- NOTE | 2023-02-04 23:30 | NUR ---
Report received from Angelita OLIVER. Pt arrived to unit at 2302. Pt placed on tele monitor, on 2L NC, MRSA swab done, all needs met at this time
[2023-02-05] VITALS (18 sets, daily range): BP systolic 103–120; BP diastolic 52–83; PULSE 92–112; RESP 14–24; TEMP 97–98.1; O2SAT 93–100
[2023-02-05] MEDS: methylPREDNISolone sod succ 125mg/2ml vial IV SCH ×3 (00:15→16:05)
[2023-02-05] MEDS: HYDROcodone/acetaminophen 5mg/325mg tablet PO PRN (00:16)
--- NOTE | 2023-02-05 00:59 | NUR ---
Pt feeling short of breath, O2 Sat at 95%, requested BiPap to be placed. Pt placed on BiPap
--- NOTE | 2023-02-05 06:20 | NUR ---
Problems reprioritized. Patient report given, questions answered & plan of care reviewed with Erendira OLIVER.
--- NOTE | 2023-02-05 06:25 | NUR ---
Patient in room PCU 3023. I have received report from MELODY King and had the opportunity to ask questions and assume patient care.
--- NOTE | 2023-02-05 06:28 | NUR ---
Patient in room PCU 3023. I have received report from MELODY King and had the opportunity to ask questions and assume patient care.
[2023-02-05 06:40] LABS: BASOPHILS % (AUTO) 0.3 % (0-1); EOSINOPHILS % (AUTO) 0.1 % (0-6); HEMATOCRIT 36.1 % (42.0-52.0); HEMOGLOBIN 11.4 g/dl (14.0-17.9); LYMPHOCYTES # (AUTO) 0.4 X10'3 (1.1-4.8); LYMPHOCYTES % (AUTO) 7.8 % (21-51); MEAN CORPUSCULAR HEMOGLOBIN 27.6 PG (27.0-31.0); MEAN CORPUSCULAR HGB CONC 31.6 g/dL (33.0-36.5); MEAN CORPUSCULAR VOLUME 87.4 FL (78-98); MEAN PLATELET VOLUME 7.2 FL (7.4-10.4); MONOCYTES # (AUTO) 0.1 X10'3 (0-0.9); MONOCYTES % (AUTO) 2.3 % (2-12); NEUTROPHILS # (AUTO) 4.8 X10'3 (1.8-7.7); NEUTROPHILS % (AUTO) 89.5 % (42-75); PLATELET COUNT 284 X10'3 (140-440); RED BLOOD COUNT 4.13 X10'6 (4.70-6.10); RED CELL DISTRIBUTION WIDTH 15.9 % (11.5-14.5); WHITE BLOOD COUNT 5.3 X10'3 (4.5-11.0)
[2023-02-05 07:20] LABS: % IRON SATURATION 9 % (11-46); IRON 25 UG/DL (53-167); TOTAL IRON BINDING CAPACITY 291 UG/DL (259-388)
[2023-02-05 07:31] LABS: ALANINE AMINOTRANSFERASE 33 U/L (12-78); ALBUMIN 2.9 G/DL (3.4-5.0); ALBUMIN/GLOBULIN RATIO 0.8 (1.1-1.5); ALKALINE PHOSPHATASE 65 IU/L (46-116); ANION GAP 5 (8-16); ASPARTATE AMINO TRANSFERASE 17 U/L (10-37); BILIRUBIN,TOTAL 0.9 MG/DL (0.1-1.0); BLOOD UREA NITROGEN 20 MG/DL (7-18); BUN/CREATININE RATIO 33.3 (10.0-20.0); CALCIUM 8.9 MG/DL (8.5-10.1); CHLORIDE 101 MMOL/L (99-107); CHOL/HDL RATIO 3.1 (0.00-4.99); CHOLESTEROL 129 MG/DL (0-200); GLUCOSE 224 MG/DL (70-104); HDL CHOLESTEROL 41 MG/DL (35-60); LDL CHOLESTEROL 73 MG/DL (50-100); MAGNESIUM 1.7 MG/DL (1.5-2.4); POTASSIUM 4.7 MMOL/L (3.5-5.1); PRO BRAIN NATRIURETIC PEPTIDE 8881 PG/ML (0-450); SODIUM 138 MMOL/L (135-145); TOTAL CARBON DIOXIDE 31.6 MMOL/L (24-32); TOTAL PROTEIN 6.6 G/DL (6.4-8.2); TRIGLYCERIDES 38 MG/DL (20-135); eCRCL 99 ML/MIN; eGFR > 90 ML/MIN
[2023-02-05 07:33] LABS: FERRITIN 116 NG/ML (26-388)
[2023-02-05] MEDS: docusate sod 100mg capsule PO SCH ×2 (07:54→20:59)
[2023-02-05] MEDS: furosemide 40mg/4ml inj IV SCH (07:54)
[2023-02-05] MEDS: CefTRIAXone/D5W-Rocephin 1gm 50 ML IV SCH (07:55)
[2023-02-05] MEDS: enoxaparin 40mg/0.4ml syringe SUBCUT SCH (07:57)
[2023-02-05] MEDS: K and/or MAG REPLACEMENT MC SCH ×2 (08:00→20:00)
[2023-02-05] MEDS: ipratropium/albuterol 3ml nebule NEB PRN ×2 (08:38→19:30)
[2023-02-05] MEDS: insulin Lispro (HumaLOG) vial - multi-dose SQ SCH ×3 (10:06→19:25)
[2023-02-05] MEDS ORDERED: cyclobenzaprine 10mg tablet PO PRN (10:20)
[2023-02-05] MEDS ORDERED: albuterol 2.5 MG/3 ML nebule NEB PRN (10:25)
--- NOTE | 2023-02-05 12:31 | NUR ---
Diabetes consult: Pt presents with an A1c of 7.5% this admit per EMR. Due to A1c being appropriate given advanced age per ADA guidelines, diabetes nutrition education is not warranted at this time. Will remain available for any nutrition questions or concerns. Addendum: 02/05/23 at [address] Amended: Links added.
[2023-02-05] MEDS ORDERED: iohexol 350MG/ML 100ml bottle IV ONE (13:40)
--- NOTE | 2023-02-05 18:28 | NUR ---
Problems reprioritized. Patient report given, questions answered & plan of care reviewed with Ronny King.
--- NOTE | 2023-02-05 18:29 | NUR ---
Problems reprioritized. Patient report given, questions answered & plan of care reviewed with MELODY King.
[2023-02-05] MEDS: atorvastatin 20mg tablet PO SCH (20:59)
[2023-02-05] MEDS: carVEDilol 3.125mg tablet PO SCH (20:59)
[2023-02-05] MEDS: insulin glargine (Lantus) pen - multi-dose SQ SCH (21:22)
[2023-02-06] VITALS (14 sets, daily range): BP systolic 84–113; BP diastolic 53–72; PULSE 85–108; RESP 14–28; TEMP 97–97.7; O2SAT 91–99
[2023-02-06] MEDS: methylPREDNISolone sod succ/PF 40mg inj. IV SCH ×3 (00:33→16:13)
[2023-02-06] MEDS: HYDROcodone/acetaminophen 5mg/325mg tablet PO PRN (00:44)
--- NOTE | 2023-02-06 06:40 | NUR ---
Patient in room PCU 3023. I have received report from MELODY King and had the opportunity to ask questions and assume patient care.
[2023-02-06 07:30] LABS: BASOPHILS % (AUTO) 0.1 % (0-1); EOSINOPHILS % (AUTO) 0 % (0-6); HEMATOCRIT 35.5 % (42.0-52.0); HEMOGLOBIN 11.3 g/dl (14.0-17.9); LYMPHOCYTES # (AUTO) 0.4 X10'3 (1.1-4.8); LYMPHOCYTES % (AUTO) 4.8 % (21-51); MEAN CORPUSCULAR HEMOGLOBIN 27.5 PG (27.0-31.0); MEAN CORPUSCULAR HGB CONC 31.8 g/dL (33.0-36.5); MEAN CORPUSCULAR VOLUME 86.7 FL (78-98); MEAN PLATELET VOLUME 7.4 FL (7.4-10.4); MONOCYTES # (AUTO) 0.4 X10'3 (0-0.9); NEUTROPHILS # (AUTO) 8.2 X10'3 (1.8-7.7); NEUTROPHILS % (AUTO) 91.1 % (42-75); PLATELET COUNT 284 X10'3 (140-440); RED BLOOD COUNT 4.09 X10'6 (4.70-6.10); RED CELL DISTRIBUTION WIDTH 15.7 % (11.5-14.5)
[2023-02-06] MEDS: K and/or MAG REPLACEMENT MC SCH ×2 (08:00→20:00)
[2023-02-06] MEDS: losartan 25mg tablet PO SCH (08:05)
[2023-02-06] MEDS: cholecalciferol (vitamin D3) 1,000 unit (25mcg) tablet PO SCH (08:05)
[2023-02-06] MEDS: cyanocobalamin 500mcg tablet PO SCH (08:05)
[2023-02-06] MEDS: docusate sod 100mg capsule PO SCH ×2 (08:05→21:22)
[2023-02-06] MEDS: CefTRIAXone/D5W-Rocephin 1gm 50 ML IV SCH (08:06)
[2023-02-06] MEDS: pantoprazole 40mg Tablet.DR PO SCH (08:06)
[2023-02-06] MEDS: carVEDilol 3.125mg tablet PO SCH ×2 (08:06→21:22)
[2023-02-06] MEDS: furosemide 40mg/4ml inj IV SCH (08:06)
[2023-02-06 08:07] LABS: ALANINE AMINOTRANSFERASE 24 U/L (12-78); ALBUMIN 2.9 G/DL (3.4-5.0); ALBUMIN/GLOBULIN RATIO 0.8 (1.1-1.5); ALKALINE PHOSPHATASE 66 IU/L (46-116); ANION GAP 5 (8-16); ASPARTATE AMINO TRANSFERASE 18 U/L (10-37); BILIRUBIN,TOTAL 0.5 MG/DL (0.1-1.0); BLOOD UREA NITROGEN 25 MG/DL (7-18); BUN/CREATININE RATIO 39.7 (10.0-20.0); CALCIUM 9.1 MG/DL (8.5-10.1); CHLORIDE 102 MMOL/L (99-107); CREATININE 0.63 MG/DL (0.60-1.10); GLUCOSE 204 MG/DL (70-104); MAGNESIUM 1.7 MG/DL (1.5-2.4); PRO BRAIN NATRIURETIC PEPTIDE 15463 PG/ML (0-450); SODIUM 138 MMOL/L (135-145); TOTAL CARBON DIOXIDE 30.9 MMOL/L (24-32); TOTAL PROTEIN 6.5 G/DL (6.4-8.2); eCRCL 95 ML/MIN; eGFR > 90 ML/MIN
[2023-02-06] MEDS: fenofibrate 48mg tablet PO SCH (08:11)
--- NOTE | 2023-02-06 09:09 | NUR ---
WO NOTE: Consult sent to [facility] for nail trim, unfortunately wound nurse cannot trim his nails because he is a diabetic. [facility] informed primary nurse via T/C.
[2023-02-06] MEDS: insulin Lispro (HumaLOG) vial - multi-dose SQ SCH ×3 (10:01→19:24)
[2023-02-06] MEDS: ipratropium/albuterol 3ml nebule NEB PRN ×2 (10:22→19:59)
--- NOTE | 2023-02-06 12:30 | NUR ---
Sent a page to DR. Kirkpatrick, regarding pt's BP. Pt had a manual BP reading of 84/60. Patient denies feeling dizzy or lightheaded.
--- NOTE | 2023-02-06 18:20 | NUR ---
Problems reprioritized. Patient report given, questions answered & plan of care reviewed with MELODY King and PLACIDO Pozo.
--- NOTE | 2023-02-06 18:35 | NUR ---
Student documentation: I have reviewed and agree with all interventions, assessments performed and documented by SN Tyra. Student Medication Administration: For this medication-pass time frame, all medication were reviewed, dispensed, administered and documented per hospital policy by SN Tyra.
--- NOTE | 2023-02-06 20:53 | NUR ---
Shae ECHAVARRIA and called back PAGER ID: [phone] MESSAGE: [id number] Alesia Hernandez Pt has a thoracentesis tomorrow AM. I just wanted to double check and make sure that we should hold the Lovenox injection as well as the baby aspirin. Please advise, thank you! [phone]
[2023-02-06] MEDS: atorvastatin 20mg tablet PO SCH (21:22)
[2023-02-06] MEDS: insulin glargine (Lantus) pen - multi-dose SQ SCH (21:52)
[2023-02-06] MEDS: aspirin 81mg, enteric-coated 1 TAB TABLET.DR PO SCH (22:06)
[2023-02-06] MEDS: dextrose 50%-water 50ml dispensing syringe IV PRN (23:37)
[2023-02-07] VITALS (18 sets, daily range): BP systolic 88–117; BP diastolic 61–77; PULSE 81–108; RESP 16–22; TEMP 97–98.1; O2SAT 92–98
[2023-02-07] MEDS: dextrose 50%-water 50ml dispensing syringe IV PRN ×3 (00:14→03:34)
[2023-02-07] MEDS: HYDROcodone/acetaminophen 5mg/325mg tablet PO PRN ×2 (00:27→21:38)
[2023-02-07] MEDS: methylPREDNISolone sod succ/PF 40mg inj. IV SCH ×3 (00:30→16:02)
--- NOTE | 2023-02-07 03:37 | NUR ---
Page Sent PAGER ID: [phone] MESSAGE: [id number] David Dumas, Pt BS at 2330 of 54. Pt has been given D50% 25mL now 4 times. His BS has continued to go up and down despite D50 and food. BS now 88. Per protocol he may need to be put on IV D10% Please advise, thank you! Christine [phone]
--- NOTE | 2023-02-07 03:44 | NUR ---
MD called for pt BS condition. MD gave order for D10W 50 mL/hr. Order read back and placed per .
[2023-02-07] MEDS: Dextrose 10%-water IV solution 1,000 ML IV SCH (04:02)
--- NOTE | 2023-02-07 04:23 | NUR ---
I was present at the time of assessment and agree with all findings from Sánchez CUMMINS
--- NOTE | 2023-02-07 06:37 | NUR ---
Problems reprioritized. Patient report given to Iker OLIVER questions answered & plan of care reviewed with .
--- NOTE | 2023-02-07 06:37 | NUR ---
Patient in room PCU 3023. I have received report from MELODY King and had the opportunity to ask questions and assume patient care.
[2023-02-07] MEDS: losartan 25mg tablet PO SCH (07:07)
[2023-02-07] MEDS: carVEDilol 3.125mg tablet PO SCH ×2 (07:07→20:32)
[2023-02-07] MEDS: furosemide 40mg/4ml inj IV SCH (07:07)
[2023-02-07] MEDS: pantoprazole 40mg Tablet.DR PO SCH (07:15)
[2023-02-07] MEDS: CefTRIAXone/D5W-Rocephin 1gm 50 ML IV SCH (07:15)
[2023-02-07] MEDS: cyanocobalamin 500mcg tablet PO SCH (07:15)
[2023-02-07] MEDS: docusate sod 100mg capsule PO SCH ×2 (07:15→20:00)
[2023-02-07] MEDS: fenofibrate 48mg tablet PO SCH (07:15)
[2023-02-07] MEDS: cholecalciferol (vitamin D3) 1,000 unit (25mcg) tablet PO SCH (07:15)
[2023-02-07 07:20] LABS: BASOPHILS % (AUTO) 0 % (0-1); EOSINOPHILS % (AUTO) 0 % (0-6); HEMATOCRIT 33.9 % (42.0-52.0); LYMPHOCYTES # (AUTO) 0.5 X10'3 (1.1-4.8); LYMPHOCYTES % (AUTO) 4.5 % (21-51); MEAN CORPUSCULAR HEMOGLOBIN 28.1 PG (27.0-31.0); MEAN CORPUSCULAR HGB CONC 32.4 g/dL (33.0-36.5); MEAN CORPUSCULAR VOLUME 86.7 FL (78-98); MEAN PLATELET VOLUME 7.4 FL (7.4-10.4); MONOCYTES # (AUTO) 0.4 X10'3 (0-0.9); MONOCYTES % (AUTO) 4.3 % (2-12); NEUTROPHILS # (AUTO) 9.2 X10'3 (1.8-7.7); NEUTROPHILS % (AUTO) 91.2 % (42-75); PLATELET COUNT 282 X10'3 (140-440); RED BLOOD COUNT 3.91 X10'6 (4.70-6.10); RED CELL DISTRIBUTION WIDTH 15.7 % (11.5-14.5); WHITE BLOOD COUNT 10.1 X10'3 (4.5-11.0)
[2023-02-07] MEDS: enoxaparin 40mg/0.4ml syringe SUBCUT SCH (07:25)
[2023-02-07 07:54] LABS: ALANINE AMINOTRANSFERASE 27 U/L (12-78); ALBUMIN 2.8 G/DL (3.4-5.0); ALBUMIN/GLOBULIN RATIO 0.8 (1.1-1.5); ALKALINE PHOSPHATASE 61 IU/L (46-116); ANION GAP 5 (8-16); ASPARTATE AMINO TRANSFERASE 20 U/L (10-37); BILIRUBIN,TOTAL 0.5 MG/DL (0.1-1.0); BLOOD UREA NITROGEN 29 MG/DL (7-18); BUN/CREATININE RATIO 43.9 (10.0-20.0); CALCIUM 9.1 MG/DL (8.5-10.1); CHLORIDE 101 MMOL/L (99-107); CREATININE 0.66 MG/DL (0.60-1.10); GLUCOSE 106 MG/DL (70-104); MAGNESIUM 1.6 MG/DL (1.5-2.4); POTASSIUM 4.1 MMOL/L (3.5-5.1); PRO BRAIN NATRIURETIC PEPTIDE 10336 PG/ML (0-450); SODIUM 137 MMOL/L (135-145); TOTAL CARBON DIOXIDE 31.4 MMOL/L (24-32); TOTAL PROTEIN 6.3 G/DL (6.4-8.2); eCRCL 90 ML/MIN; eGFR > 90 ML/MIN
[2023-02-07] MEDS: K and/or MAG REPLACEMENT MC SCH ×2 (08:00→20:00)
[2023-02-07] MEDS: ipratropium/albuterol 3ml nebule NEB PRN ×4 (08:13→19:16)
--- NOTE | 2023-02-07 09:58 | NUR ---
patient asking for nails to be clipped. patient was educated on reasons why we are unable to clip his nails yesterday. re educated patient that due to him being diabetci and risks of injury from clipping nails nursing staff and wound care are unable to clip his nails. patient was told he can have family bring in clippers and he or family can clip and nail filer was given to patient. patient states he can do it himself.
--- NOTE | 2023-02-07 11:31 | NUR ---
Initial: Pt admit for acute worsening of chronic respiratory failure (currently on 2 L NC per EMR), exacerbation of CHF and COPD, moderate right pleural effusion, and possible bilat PNA. Pt currently on an EC7 CHO controlled diet with 1.5 L fluid restriction and eating well, documented with 100% PO intake of all meals with the exception of 63% PO intake of one meal making average PO intake 94% meeting 100% estimated energy and protein needs. Noted pt currently receiving D10 at 50 mL/hr d/t episodes of hypoglycemia providing 408 kcal/day. Recommend removing CHO controlled diet restriction if BG remains low or WNL. No documented BM since admit and pt unsure of when LBM was per EMR. Pt receiving routine bowel care and with PRN bowel care available. D/w dietary to send power pudding with next meal to assist with a BM. Will continue to follow and monitor need for additional nutrition intervention. Recommendations: 1) Continue EC7 diet with 1.5 L fluid restriction per physician; consider discontinuing CHO controlled diet restriction d/t episodes of hypoglycemia, currently receiving D10 2) Routine bowel care; utilize PRN bowel care if pt continues without a BM 3) Daily scaled weights per rx Addendum: 02/07/23 at [address] Amended: Links added.
--- NOTE | 2023-02-07 12:32 | NUR ---
IR at bedside.
--- NOTE | 2023-02-07 13:00 | NUR ---
Dr. Kirkpatrick aware patient SBP below 100 this am so BP meds and lasix held and patient had thoracentesis and per patient "they took out 910." Patient sitting on edge of bed eating lunch. Rechecked BP and it is 85/54 HR [address] Kirkpatrick also aware patient has not voided since this morning. No new orders. Dr. Kirkpatrick stated "we'll give him a little more time."
[2023-02-07] MEDS: insulin Lispro (HumaLOG) vial - multi-dose SQ SCH ×2 (13:43→19:04)
[2023-02-07 13:46] LABS: GLUCOSE,BODY FLUID 156 MG/DL; LDH,BODY FLUID 58 U/L
[2023-02-07 14:00] LABS: BF RBC COUNT 315 /CU MM; BF WBC COUNT 199 /CU MM (0-1000); BFAPPEAR HAZY; BFCOLOR YELLOW; BFSOURCE RIGHT PLEURAL FLD; BFVOLUME 60 ML; NEUTROPHILS,BODY FLUID 24 %
[2023-02-07 14:01] LABS: LYMPHOCYTES,BODY FLUID 58 %; MONOCYTES,BODY FLUID 18 %
[2023-02-07 14:03] LABS: BF MESOTHELIAL CELLS MODERATE
--- NOTE | 2023-02-07 14:05 | NUR ---
PAGER ID: [phone] MESSAGE: [id number]- Loren Dumas- pathologist seeing "mesothelial cells" from pleural fluid and recommends cytology be ordered as well. ok to order?- Erendira [id number]
[2023-02-07 14:07] LABS: BFSOURCE RIGHT PLEURAL FLD; PLEURAL FLUID PH 7.475 (7.63-7.65)
[2023-02-07 14:38] LABS: TOTAL PROTEIN,BODY FLUID < 2.0 G/DL
--- NOTE | 2023-02-07 15:33 | NUR ---
PAGER ID: [phone] MESSAGE: [id number]- Loren Dumas- pathologist recommeds adding cytology ordered r/t seeing mesothelial cells in pleural fluid. ok to order?- Erendira 7360
--- NOTE | 2023-02-07 15:48 | NUR ---
Spoke to Kev in lab and let him know Dr. Kirkpatrick wanted to add cytology to pleural fluid. Asked Kev for his assistance and Kev stated he had "done it for you."
--- NOTE | 2023-02-07 18:15 | NUR ---
Patient in room PCU 3023. I have received report from Erendira OLIVER and had the opportunity to ask questions and assume patient care.
--- NOTE | 2023-02-07 18:24 | NUR ---
Problems reprioritized. Patient report given, questions answered & plan of care reviewed with PLACIDO Mejía.
[2023-02-07] MEDS: aspirin 81mg, enteric-coated 1 TAB TABLET.DR PO SCH (20:32)
[2023-02-07] MEDS: atorvastatin 20mg tablet PO SCH (20:32)
[2023-02-07] MEDS: insulin glargine (Lantus) pen - multi-dose SQ SCH (21:32)
[2023-02-08] MEDS: methylPREDNISolone sod succ/PF 40mg inj. IV SCH ×3 (00:21→16:00)
[2023-02-08 02:00] VITALS: BP 115/74; PULSE 79; RESP 17; TEMP 97.5; O2SAT 96
[2023-02-08] MEDS: Dextrose 10%-water IV solution 1,000 ML IV SCH (05:00)
[2023-02-08] MEDS: K and/or MAG REPLACEMENT MC SCH (06:47)
--- NOTE | 2023-02-08 06:56 | NUR ---
I AGREE WITH DRUG ENFORCEMENT AGENT'S ASSESSMENT
[2023-02-08 07:09] VITALS: BP 111/76; PULSE 74; RESP 16; TEMP 97.3; O2SAT 99
--- NOTE | 2023-02-08 07:39 | NUR ---
Pt states he cant lay down on bed to get weighed or stand up on scale. No weight done
[2023-02-08 07:45] VITALS: RESP 16; O2SAT 99
[2023-02-08 08:20] LABS: BASOPHILS % (AUTO) 0 % (0-1); EOSINOPHILS % (AUTO) 0 % (0-6); HEMATOCRIT 37.7 % (42.0-52.0); LYMPHOCYTES # (AUTO) 0.7 X10'3 (1.1-4.8); LYMPHOCYTES % (AUTO) 7.5 % (21-51); MEAN CORPUSCULAR HEMOGLOBIN 27.6 PG (27.0-31.0); MEAN CORPUSCULAR HGB CONC 31.8 g/dL (33.0-36.5); MEAN CORPUSCULAR VOLUME 86.9 FL (78-98); MEAN PLATELET VOLUME 7.4 FL (7.4-10.4); MONOCYTES # (AUTO) 0.4 X10'3 (0-0.9); NEUTROPHILS # (AUTO) 7.6 X10'3 (1.8-7.7); NEUTROPHILS % (AUTO) 87.5 % (42-75); PLATELET COUNT 288 X10'3 (140-440); RED BLOOD COUNT 4.34 X10'6 (4.70-6.10); WHITE BLOOD COUNT 8.7 X10'3 (4.5-11.0)
[2023-02-08 08:45] LABS: BLOOD UREA NITROGEN 31 MG/DL (7-18)
[2023-02-08 08:58] LABS: ALANINE AMINOTRANSFERASE 30 U/L (12-78); ALBUMIN 3.1 G/DL (3.4-5.0); ALBUMIN/GLOBULIN RATIO 0.9 (1.1-1.5); ALKALINE PHOSPHATASE 52 IU/L (46-116); ANION GAP 4 (8-16); ASPARTATE AMINO TRANSFERASE 18 U/L (10-37); BILIRUBIN,TOTAL 0.7 MG/DL (0.1-1.0); BUN/CREATININE RATIO 43.1 (10.0-20.0); CHLORIDE 97 MMOL/L (99-107); CREATININE 0.72 MG/DL (0.60-1.10); GLUCOSE 113 MG/DL (70-104); MAGNESIUM 1.8 MG/DL (1.5-2.4); POTASSIUM 4.3 MMOL/L (3.5-5.1); PRO BRAIN NATRIURETIC PEPTIDE 11064 PG/ML (0-450); SODIUM 136 MMOL/L (135-145); TOTAL CARBON DIOXIDE 35.1 MMOL/L (24-32); TOTAL PROTEIN 6.7 G/DL (6.4-8.2); eCRCL 83 ML/MIN; eGFR > 90 ML/MIN
[2023-02-08] MEDS: CefTRIAXone/D5W-Rocephin 1gm 50 ML IV SCH (09:01)
[2023-02-08] MEDS: enoxaparin 40mg/0.4ml syringe SUBCUT SCH (09:01)
[2023-02-08] MEDS: cyanocobalamin 500mcg tablet PO SCH (09:02)
[2023-02-08] MEDS: cholecalciferol (vitamin D3) 1,000 unit (25mcg) tablet PO SCH (09:02)
[2023-02-08] MEDS: docusate sod 100mg capsule PO SCH (09:02)
[2023-02-08] MEDS: losartan 25mg tablet PO SCH (09:02)
[2023-02-08] MEDS: pantoprazole 40mg Tablet.DR PO SCH (09:02)
[2023-02-08] MEDS: carVEDilol 3.125mg tablet PO SCH (09:02)
[2023-02-08] MEDS: fenofibrate 48mg tablet PO SCH (09:02)
[2023-02-08] MEDS: furosemide 40mg/4ml inj IV SCH (09:03)
[2023-02-08] MEDS: HYDROcodone/acetaminophen 5mg/325mg tablet PO PRN (09:18)
[2023-02-08 11:31] VITALS: BP 94/64; PULSE 79; RESP 31; TEMP 97.4; O2SAT 98
[2023-02-08] MEDS: insulin Lispro (HumaLOG) vial - multi-dose SQ SCH (13:50)
[2023-02-08] MEDS: ipratropium/albuterol 3ml nebule NEB PRN (14:53)
[2023-02-08 14:56] VITALS: PULSE 78; RESP 22; O2SAT 98
[2023-02-08 15:05] VITALS: PULSE 72; RESP 22
[2023-02-08] MEDS ORDERED: LISI2.5T14 PO (15:33)
[2023-02-08] MEDS ORDERED: COR3.125T PO (15:33)
[2023-02-08] MEDS ORDERED: SPIR25TA5 PO (15:33)
== END 2023-02-08 17:51 | disposition home health service (06) | DRG 193 ==
LOC: ER 17:51 → EDBD 17:51 → ED HOLD 20:01 → EDBEDREQ 21:59 → PCU 3S 23:00
PROVIDERS: ADMIT Internal Medicine; ATTEND Family Medicine
PROC: 5A09357 Assistance with Respiratory Ventilation, Less than 24 Consecutive Hours, Continuous Positive Airway Pressure (ICD-10-PCS; 2023-02-04)
PROC: B32T1ZZ Computerized Tomography (CT Scan) of Left Pulmonary Artery using Low Osmolar Contrast (ICD-10-PCS; 2023-02-05)
PROC: B3201ZZ Computerized Tomography (CT Scan) of Thoracic Aorta using Low Osmolar Contrast (ICD-10-PCS; 2023-02-05)
PROC: B32S1ZZ Computerized Tomography (CT Scan) of Right Pulmonary Artery using Low Osmolar Contrast (ICD-10-PCS; 2023-02-05)
PROC: 5A09357 Assistance with Respiratory Ventilation, Less than 24 Consecutive Hours, Continuous Positive Airway Pressure (ICD-10-PCS; 2023-02-05)
PROC: 0W993ZZ Drainage of Right Pleural Cavity, Percutaneous Approach (ICD-10-PCS; principal; 2023-02-07)
DX: J18.9 Pneumonia, unspecified organism (principal); I50.23 Acute on chronic systolic (congestive) heart failure; J96.21 Acute and chronic respiratory failure with hypoxia; J44.0 Chronic obstructive pulmonary disease with (acute) lower respiratory infection; J44.1 Chronic obstructive pulmonary disease with (acute) exacerbation; J91.8 Pleural effusion in other conditions classified elsewhere; I11.0 Hypertensive heart disease with heart failure; K21.9 Gastro-esophageal reflux disease without esophagitis; E11.9 Type 2 diabetes mellitus without complications; N40.0 Benign prostatic hyperplasia without lower urinary tract symptoms; D64.9 Anemia, unspecified; F17.210 Nicotine dependence, cigarettes, uncomplicated; E78.00 Pure hypercholesterolemia, unspecified; F32.9 Major depressive disorder, single episode, unspecified; E66.9 Obesity, unspecified; I25.2 Old myocardial infarction; Z68.31 Body mass index [BMI] 31.0-31.9, adult; Z88.5 Allergy status to narcotic agent; Z88.1 Allergy status to other antibiotic agents; Z79.899 Other long term (current) drug therapy; Z79.82 Long term (current) use of aspirin
CPT/HCPCS: 32555; 36415; 71045; 71275; 80053; 80061; 82607; 82728; 82945; 82948; 83036; 83540; 83550; 83615; 83735; 83880; 83986; 84157; 84484; 85025; 87070; 87075; 87081; 88108; 88305; 88341; 88342; 89051; 93005; 93306; 94640; 94660; 94760; 97530; 99285; A6212; A6250; C1729; G0378; J0696; J1650; J1815; J1940; J2060; J2920; J2930; J3490; Q9967

== ENCOUNTER 2023-02-09 07:20 | Inpatient (IN) | payer MEDICARE ==
[~2023-02-09] VITALS: Ht 170.2 cm; Wt 90.0 kg
[~2023-02-09 07:20] MED LIST changes: +ALBU2.5V10 PO; +COR3.125T PO; -FLUT1BLS16 IH; +FLUT1BLS16 PO; +FURO-150 PO; +IPRA3AMP31 NEB; -IPRA3AMP9 NEB; +LISI2.5T14 PO; -METH4TAB81 PO; +SPIR25TA5 PO
--- NOTE | 2023-02-09 07:23 | NUR ---
PER MYRON RN PAGE RT STAT FOR PT THAT JUST ARRIVED PER EMS RT NEEDS TO COME TO BEDSIDE SARAHI. RT PAGED.
[2023-02-09] MEDS ORDERED: ipratropium/albuterol 3ml nebule NEB ONE (07:30)
[2023-02-09] MEDS ORDERED: ipratropium/albuterol 3ml nebule ONE (07:34)
[2023-02-09] MEDS ORDERED: methylPREDNISolone sod succ 125mg/2ml vial IV ONE (07:35)
[2023-02-09] MEDS ORDERED: aspirin 81mg tab.chew PO ONE (07:35)
[2023-02-09 07:36] VITALS: PULSE 86; RESP 24; O2SAT 94
[2023-02-09] MEDS ORDERED: furosemide 20 MG/2 ML vial IV STA (07:40)
[2023-02-09 07:47] VITALS: PULSE 82; RESP 24; O2SAT 94
[2023-02-09 07:55] LABS: BASOPHILS % (AUTO) 0.2 % (0-1); EOSINOPHILS % (AUTO) 0.1 % (0-6); HEMATOCRIT 37.2 % (42.0-52.0); HEMOGLOBIN 12.1 g/dl (14.0-17.9); LYMPHOCYTES # (AUTO) 1.5 X10'3 (1.1-4.8); LYMPHOCYTES % (AUTO) 19.5 % (21-51); MEAN CORPUSCULAR HEMOGLOBIN 27.8 PG (27.0-31.0); MEAN CORPUSCULAR HGB CONC 32.4 g/dL (33.0-36.5); MEAN CORPUSCULAR VOLUME 85.8 FL (78-98); MEAN PLATELET VOLUME 7.1 FL (7.4-10.4); MONOCYTES # (AUTO) 0.9 X10'3 (0-0.9); MONOCYTES % (AUTO) 10.9 % (2-12); NEUTROPHILS # (AUTO) 5.5 X10'3 (1.8-7.7); NEUTROPHILS % (AUTO) 69.3 % (42-75); PLATELET COUNT 276 X10'3 (140-440); RED BLOOD COUNT 4.34 X10'6 (4.70-6.10); RED CELL DISTRIBUTION WIDTH 15.7 % (11.5-14.5); WHITE BLOOD COUNT 7.9 X10'3 (4.5-11.0)
[2023-02-09 08:09] LABS: ALANINE AMINOTRANSFERASE 33 U/L (12-78); ALBUMIN 2.9 G/DL (3.4-5.0); ALBUMIN/GLOBULIN RATIO 0.8 (1.1-1.5); ALKALINE PHOSPHATASE 73 IU/L (46-116); ANION GAP 3 (8-16); ASPARTATE AMINO TRANSFERASE 26 U/L (10-37); BILIRUBIN,TOTAL 0.4 MG/DL (0.1-1.0); BLOOD UREA NITROGEN 31 MG/DL (7-18); BUN/CREATININE RATIO 37.8 (10.0-20.0); CALCIUM 8.4 MG/DL (8.5-10.1); CHLORIDE 97 MMOL/L (99-107); CREATININE 0.82 MG/DL (0.60-1.10); GLUCOSE 194 MG/DL (70-104); SODIUM 133 MMOL/L (135-145); TOTAL CARBON DIOXIDE 32.9 MMOL/L (24-32); TOTAL PROTEIN 6.4 G/DL (6.4-8.2); eCRCL 73 ML/MIN; eGFR > 90 ML/MIN
[2023-02-09 08:17] LABS: MAGNESIUM 1.7 MG/DL (1.5-2.4); PRO BRAIN NATRIURETIC PEPTIDE 8183 PG/ML (0-450)
[2023-02-09] MEDS ORDERED: ipratropium/albuterol 3ml nebule NEB STA (08:48)
[2023-02-09 08:54] VITALS: PULSE 81; RESP 22; O2SAT 94
--- NOTE | 2023-02-09 08:56 | NUR ---
PT TOOK 324 0F RAMIRO THIS AM
[2023-02-09 09:03] VITALS: PULSE 83; RESP 22; O2SAT 95
--- NOTE | 2023-02-09 09:15 | NUR ---
PT A/O X4 PT WAS ABLE TO GET UP TO BSC WITH 1 ASSIST.
[2023-02-09] MEDS ORDERED: potassium Cl 20 mEq SR tablet PO PRN ×2 (09:35)
[2023-02-09] MEDS ORDERED: ondansetron/PF 4mg/2ml inj IV PRN (09:35)
[2023-02-09] MEDS ORDERED: magnesium Cl slow-release 64mg tablet PO PRN (09:35)
[2023-02-09] MEDS ORDERED: acetaminophen 325mg tablet PO PRN (09:35)
[2023-02-09] MEDS ORDERED: magnesium 2GM in 50ml NS 50 ML IV PRN (09:35)
[2023-02-09] MEDS ORDERED: magnesium 4gm in 100ml NS 100 ML IV PRN (09:35)
[2023-02-09] MEDS ORDERED: potassium Cl 40MEQ/1/2NS 520ml 520 ML IV PRN (09:35)
[2023-02-09] MEDS ORDERED: ipratropium/albuterol 3ml nebule NEB PRN (09:35)
[2023-02-09 10:20] LABS: MAGNESIUM 1.8 MG/DL (1.5-2.4); POTASSIUM 3.9 MMOL/L (3.5-5.1)
--- NOTE | 2023-02-09 13:38 | NUR ---
PT SITTING UP IN BAD EATING NOON MEAL
--- NOTE | 2023-02-09 16:28 | NUR ---
PT RESTING QUIETLY IN NAD.
--- NOTE | 2023-02-09 18:06 | NUR ---
PT A/O X4 IN NAD. PT SITTING ON SIDE OF BED TALKING ON PHONE. HOSPITAL BED REQUESTED.
--- NOTE | 2023-02-09 19:02 | NUR ---
PT STATES HAS BEEN WEARING OXYGEN 2L NC PRN DURING THE DAY AND CPAP AT NIGHT BUT HAS BEEN USING IT AT HOME ALL OF THE TIME LATELY. PT UP TO SIDE OF BED EATING DINNER. PLACED ON ON 2L NC OXYGEN.
[2023-02-09] MEDS: K and/or MAG REPLACEMENT MC SCH (20:00)
[2023-02-09] MEDS: methylPREDNISolone sod succ/PF 40mg inj. IV SCH (20:10)
[2023-02-09] MEDS: heparin, porcine 5000 units/ml vial SQ SCH (20:10)
[2023-02-09 20:28] VITALS: PULSE 93; RESP 22; O2SAT 98
[2023-02-09] MEDS ORDERED: temazepam 15mg capsule PO PRN (21:00)
[2023-02-10 03:12] LABS: BASOPHILS % (AUTO) 0.9 % (0-1); EOSINOPHILS % (AUTO) 0 % (0-6); HEMATOCRIT 37.8 % (42.0-52.0); LYMPHOCYTES # (AUTO) 0.3 X10'3 (1.1-4.8); LYMPHOCYTES % (AUTO) 6.1 % (21-51); MEAN CORPUSCULAR HEMOGLOBIN 27.5 PG (27.0-31.0); MEAN CORPUSCULAR HGB CONC 31.7 g/dL (33.0-36.5); MEAN CORPUSCULAR VOLUME 86.7 FL (78-98); MEAN PLATELET VOLUME 7.7 FL (7.4-10.4); MONOCYTES # (AUTO) 0.2 X10'3 (0-0.9); MONOCYTES % (AUTO) 3.4 % (2-12); NEUTROPHILS # (AUTO) 4.9 X10'3 (1.8-7.7); NEUTROPHILS % (AUTO) 89.6 % (42-75); PLATELET COUNT 268 X10'3 (140-440); RED BLOOD COUNT 4.36 X10'6 (4.70-6.10); WHITE BLOOD COUNT 5.5 X10'3 (4.5-11.0)
[2023-02-10 03:21] LABS: ALBUMIN 2.8 G/DL (3.4-5.0); ANION GAP -2 (8-16); BLOOD UREA NITROGEN 31 MG/DL (7-18); BUN/CREATININE RATIO 36.9 (10.0-20.0); CALCIUM 8.8 MG/DL (8.5-10.1); CHLORIDE 97 MMOL/L (99-107); CREATININE 0.84 MG/DL (0.60-1.10); GLUCOSE 315 MG/DL (70-104); MAGNESIUM 1.8 MG/DL (1.5-2.4); POTASSIUM 4.2 MMOL/L (3.5-5.1); SODIUM 133 MMOL/L (135-145); TOTAL CARBON DIOXIDE 37.7 MMOL/L (24-32); eCRCL 71 ML/MIN; eGFR 89 ML/MIN
[2023-02-10 04:21] VITALS: PULSE 86; RESP 20; O2SAT 98
[2023-02-10] MEDS: ipratropium/albuterol 3ml nebule NEB PRN ×2 (04:21→19:06)
[2023-02-10 04:28] VITALS: PULSE 89; RESP 18
--- NOTE | 2023-02-10 04:44 | NUR ---
PT UP TO COMMODE WITH 2 PERSON ASSIST. PT HAD DIARRHEA X2 FOR TONIGHT. PT STATES HAS HAD 6 TOTAL DIARRHEA STOOLS TODAY. STOOL SAMPLE COLLECTED AND SENT TO LAB. CDIFF TEST ORDERED. MANAGER SHOP NOTIFIED OF SAMPLE BEING SENT.
[2023-02-10 06:43] LABS: C DIFF ANTIGEN NEGATIVE (NEGATIVE); C DIFF SPECIMEN=DIARRHEA? ACCEPTABLE; C DIFFICILE TOXINS A&B NEGATIVE (Neg)
[2023-02-10] MEDS: K and/or MAG REPLACEMENT MC SCH ×2 (07:35→20:00)
[2023-02-10] MEDS: methylPREDNISolone sod succ/PF 40mg inj. IV SCH ×2 (08:22→21:09)
[2023-02-10] MEDS: heparin, porcine 5000 units/ml vial SQ SCH ×2 (08:22→21:09)
[2023-02-10 15:35] VITALS: PULSE 107; RESP 18; O2SAT 94
[2023-02-10 19:07] VITALS: PULSE 97; RESP 20; O2SAT 93
[2023-02-10 19:14] VITALS: PULSE 96; RESP 18
--- NOTE | 2023-02-10 22:21 | NUR ---
PAGER ID: [phone] MESSAGE: Alesia David, Admitted pt in ER #6, COPD exacerbation, is asking for a Cruz catheter. Pt transfers to commode with difficulty and swollen scrotum makes using a urinal messy. Vidhi OLIVER 6302. New orders from Hospitalist for Cruz cathter and a urojet for comfort
[2023-02-10] MEDS ORDERED: LIDOcaine 2% 10ml TOPICAL JELLY (Urojet) MM ONE (22:25)
[2023-02-10] MEDS ORDERED: LidoCAINE 2% Topical Jelly 11mL syringe TOP ONE (22:30)
[2023-02-11] VITALS (8 sets, daily range): BP systolic 105–116; BP diastolic 69–74; PULSE 85–95; RESP 12–22; TEMP 97.7–98.2; O2SAT 94–98
[2023-02-11 07:45] LABS: BASOPHILS % (AUTO) 0 % (0-1); EOSINOPHILS % (AUTO) 0 % (0-6); HEMATOCRIT 37.7 % (42.0-52.0); HEMOGLOBIN 12.1 g/dl (14.0-17.9); LYMPHOCYTES # (AUTO) 0.6 X10'3 (1.1-4.8); LYMPHOCYTES % (AUTO) 8.6 % (21-51); MEAN CORPUSCULAR HEMOGLOBIN 27.6 PG (27.0-31.0); MEAN CORPUSCULAR HGB CONC 32.2 g/dL (33.0-36.5); MEAN CORPUSCULAR VOLUME 85.8 FL (78-98); MEAN PLATELET VOLUME 7.6 FL (7.4-10.4); MONOCYTES # (AUTO) 0.4 X10'3 (0-0.9); MONOCYTES % (AUTO) 5.7 % (2-12); NEUTROPHILS # (AUTO) 5.5 X10'3 (1.8-7.7); NEUTROPHILS % (AUTO) 85.7 % (42-75); PLATELET COUNT 263 X10'3 (140-440); RED BLOOD COUNT 4.39 X10'6 (4.70-6.10); RED CELL DISTRIBUTION WIDTH 16.1 % (11.5-14.5); WHITE BLOOD COUNT 6.5 X10'3 (4.5-11.0)
[2023-02-11 07:47] LABS: ALBUMIN 2.9 G/DL (3.4-5.0); ANION GAP 5 (8-16); BLOOD UREA NITROGEN 25 MG/DL (7-18); BUN/CREATININE RATIO 33.8 (10.0-20.0); CALCIUM 8.7 MG/DL (8.5-10.1); CHLORIDE 95 MMOL/L (99-107); CREATININE 0.74 MG/DL (0.60-1.10); GLUCOSE 312 MG/DL (70-104); MAGNESIUM 1.8 MG/DL (1.5-2.4); POTASSIUM 4.6 MMOL/L (3.5-5.1); SODIUM 131 MMOL/L (135-145); TOTAL CARBON DIOXIDE 31.4 MMOL/L (24-32); eCRCL 81 ML/MIN; eGFR > 90 ML/MIN
[2023-02-11] MEDS: heparin, porcine 5000 units/ml vial SQ SCH ×2 (08:00→20:52)
[2023-02-11] MEDS: K and/or MAG REPLACEMENT MC SCH ×2 (08:00→20:54)
[2023-02-11] MEDS: methylPREDNISolone sod succ/PF 40mg inj. IV SCH ×2 (08:00→20:51)
--- NOTE | 2023-02-11 18:34 | NUR ---
Problems reprioritized. Patient report given, questions answered & plan of care reviewed with DEJAN OLIVER AND BRITTANY OLIVER.
[2023-02-11] MEDS: ipratropium/albuterol 3ml nebule NEB PRN (19:13)
--- NOTE | 2023-02-11 19:49 | NUR ---
pt complaining of cp and increased shortness of breath during his respiratory treatment EKG performed and dr Jaimes notified.
--- NOTE | 2023-02-11 20:11 | NUR ---
dr meadows on unit to evaluate ekg which is unchanged and received order for lasix 20 mg IV may repeat x1 for sob with edema ho;d for sbp <100
[2023-02-11] MEDS ORDERED: furosemide 20 MG/2 ML vial IV PRN (20:15)
[2023-02-12] VITALS (11 sets, daily range): BP systolic 104–122; BP diastolic 62–75; PULSE 74–101; RESP 16–24; TEMP 97.5–98.3; O2SAT 93–99
[2023-02-12] MEDS ORDERED: furosemide 20 MG/2 ML vial IV ONE (00:45)
--- NOTE | 2023-02-12 00:59 | NUR ---
LATE ENTRY FOR 02/11/23 @ 1800 Patient in room PCU 3014B. I have received report from SWATHI OLIVER and had the opportunity to ask questions and assume patient care.
--- NOTE | 2023-02-12 06:36 | NUR ---
Patient in room PCU 3014. I have received report from Jessica OLIVER and had the opportunity to ask questions and assume patient care.
[2023-02-12 06:49] LABS: BASOPHILS % (AUTO) 0.4 % (0-1); EOSINOPHILS % (AUTO) 0 % (0-6); HEMATOCRIT 38.1 % (42.0-52.0); HEMOGLOBIN 12.4 g/dl (14.0-17.9); LYMPHOCYTES # (AUTO) 0.5 X10'3 (1.1-4.8); LYMPHOCYTES % (AUTO) 7.5 % (21-51); MEAN CORPUSCULAR HEMOGLOBIN 27.9 PG (27.0-31.0); MEAN CORPUSCULAR HGB CONC 32.5 g/dL (33.0-36.5); MEAN CORPUSCULAR VOLUME 85.8 FL (78-98); MEAN PLATELET VOLUME 7.6 FL (7.4-10.4); MONOCYTES # (AUTO) 0.3 X10'3 (0-0.9); MONOCYTES % (AUTO) 5.2 % (2-12); NEUTROPHILS # (AUTO) 5.8 X10'3 (1.8-7.7); NEUTROPHILS % (AUTO) 86.9 % (42-75); PLATELET COUNT 252 X10'3 (140-440); RED BLOOD COUNT 4.44 X10'6 (4.70-6.10); RED CELL DISTRIBUTION WIDTH 15.9 % (11.5-14.5); WHITE BLOOD COUNT 6.6 X10'3 (4.5-11.0)
[2023-02-12 07:15] LABS: ALBUMIN 3.1 G/DL (3.4-5.0); ANION GAP 7 (8-16); BLOOD UREA NITROGEN 25 MG/DL (7-18); BUN/CREATININE RATIO 31.6 (10.0-20.0); CALCIUM 8.8 MG/DL (8.5-10.1); CHLORIDE 92 MMOL/L (99-107); CREATININE 0.79 MG/DL (0.60-1.10); MAGNESIUM 1.8 MG/DL (1.5-2.4); POTASSIUM 4.7 MMOL/L (3.5-5.1); SODIUM 131 MMOL/L (135-145); TOTAL CARBON DIOXIDE 31.8 MMOL/L (24-32); eCRCL 76 ML/MIN; eGFR > 90 ML/MIN
[2023-02-12 07:24] LABS: GLUCOSE 426 MG/DL (70-104)
[2023-02-12] MEDS ORDERED: dextrose 50%-water 50ml dispensing syringe IV PRN ×2 (07:30)
[2023-02-12] MEDS ORDERED: DEXTROSE 15 GM of carb/4 tabs (each vial/BOTTLE has 4 tablets) PO PRN ×2 (07:30)
[2023-02-12] MEDS ORDERED: MESSAGE TO PHARMACY PO ONE (07:30)
[2023-02-12] MEDS ORDERED: glucagon, human recombinant 1mg kit SUBCUT PRN (07:30)
--- NOTE | 2023-02-12 07:39 | NUR ---
Paged Dr. Burciaga regarding pts critical glucose level. PAGER ID: [phone] MESSAGE: [id number], Alesia David. Pts glucose is 426, this morning. His previous admission A1C was 7.5. I initiated the protocol. Melania [facility] [id number]
[2023-02-12] MEDS: K and/or MAG REPLACEMENT MC SCH ×2 (08:00→20:00)
[2023-02-12] MEDS: furosemide 40mg/4ml inj IV SCH ×2 (10:57→19:49)
[2023-02-12] MEDS: heparin, porcine 5000 units/ml vial SQ SCH ×2 (10:58→19:48)
[2023-02-12] MEDS: methylPREDNISolone sod succ/PF 40mg inj. IV SCH (10:58)
[2023-02-12] MEDS ORDERED: cyclobenzaprine 10mg tablet PO PRN (11:50)
[2023-02-12] MEDS: lisinopril 2.5mg tablet PO SCH ×2 (11:50→13:40)
[2023-02-12] MEDS ORDERED: albuterol 2.5 MG/3 ML nebule NEB PRN (11:50)
[2023-02-12] MEDS ORDERED: ipratropium/albuterol 3ml nebule NEB PRN (11:50)
[2023-02-12] MEDS: insulin Lispro (HumaLOG) vial - multi-dose SQ SCH ×2 (13:43→19:44)
[2023-02-12] MEDS: spironolactone 25 MG tablet PO SCH (13:44)
[2023-02-12] MEDS: ipratropium/albuterol 3ml nebule IH SCH ×2 (14:49→21:30)
--- NOTE | 2023-02-12 18:41 | NUR ---
Problems reprioritized. Patient report given, questions answered & plan of care reviewed with Asuncion OLIVER, patient stable at transfer of care.
--- NOTE | 2023-02-12 18:45 | NUR ---
Patient in room PCU 3014. I have received report from MELODY LAL and had the opportunity to ask questions and assume patient care.
[2023-02-12] MEDS: carVEDilol 3.125mg tablet PO SCH (19:47)
[2023-02-12] MEDS: guaiFENesin ER 600mg tablet PO SCH (19:48)
[2023-02-12] MEDS ORDERED: carVEDilol 3.125mg tablet PO SCH (20:00)
[2023-02-12] MEDS: insulin glargine (Lantus) pen - multi-dose SQ SCH (21:54)
[2023-02-12] MEDS: atorvastatin 20mg tablet PO SCH (21:58)
[2023-02-12] MEDS: aspirin 81mg, enteric-coated 1 TAB TABLET.DR PO SCH (21:59)
[2023-02-13] VITALS (10 sets, daily range): BP systolic 90–111; BP diastolic 54–71; PULSE 64–79; RESP 16–28; TEMP 97.4–98.7; O2SAT 93–100
[2023-02-13] MEDS: ipratropium/albuterol 3ml nebule IH SCH ×4 (02:39→19:54)
[2023-02-13 07:36] LABS: BASOPHILS % (AUTO) 0.1 % (0-1); EOSINOPHILS % (AUTO) 0.2 % (0-6); HEMATOCRIT 38.4 % (42.0-52.0); HEMOGLOBIN 12.3 g/dl (14.0-17.9); LYMPHOCYTES # (AUTO) 1.3 X10'3 (1.1-4.8); LYMPHOCYTES % (AUTO) 13.9 % (21-51); MEAN CORPUSCULAR HEMOGLOBIN 27.5 PG (27.0-31.0); MEAN CORPUSCULAR VOLUME 85.9 FL (78-98); MEAN PLATELET VOLUME 7.5 FL (7.4-10.4); MONOCYTES # (AUTO) 0.9 X10'3 (0-0.9); MONOCYTES % (AUTO) 9.9 % (2-12); NEUTROPHILS # (AUTO) 7.1 X10'3 (1.8-7.7); NEUTROPHILS % (AUTO) 75.9 % (42-75); PLATELET COUNT 245 X10'3 (140-440); RED BLOOD COUNT 4.47 X10'6 (4.70-6.10); RED CELL DISTRIBUTION WIDTH 15.8 % (11.5-14.5); WHITE BLOOD COUNT 9.3 X10'3 (4.5-11.0)
[2023-02-13] MEDS: furosemide 40mg/4ml inj IV SCH ×2 (08:00→20:00)
[2023-02-13] MEDS: spironolactone 25 MG tablet PO SCH (08:00)
[2023-02-13] MEDS: carVEDilol 3.125mg tablet PO SCH ×2 (08:00→20:00)
[2023-02-13] MEDS: heparin, porcine 5000 units/ml vial SQ SCH ×2 (08:00→20:38)
[2023-02-13] MEDS: lisinopril 2.5mg tablet PO SCH ×2 (08:00)
[2023-02-13] MEDS: K and/or MAG REPLACEMENT MC SCH ×2 (08:00→20:00)
[2023-02-13 08:06] LABS: ALBUMIN 2.8 G/DL (3.4-5.0); ANION GAP 2 (8-16); BLOOD UREA NITROGEN 28 MG/DL (7-18); BUN/CREATININE RATIO 51.9 (10.0-20.0); CALCIUM 9.2 MG/DL (8.5-10.1); CHLORIDE 97 MMOL/L (99-107); CREATININE 0.54 MG/DL (0.60-1.10); GLUCOSE 91 MG/DL (70-104); MAGNESIUM 2.1 MG/DL (1.5-2.4); POTASSIUM 3.8 MMOL/L (3.5-5.1); SODIUM 136 MMOL/L (135-145); TOTAL CARBON DIOXIDE 36.6 MMOL/L (24-32); eCRCL 111 ML/MIN; eGFR > 90 ML/MIN
[2023-02-13] MEDS: budesonide 0.5mg/2ml UD nebule IH SCH (08:40)
--- NOTE | 2023-02-13 08:53 | NUR ---
Pt ambulates to the commode and chair independently.
--- NOTE | 2023-02-13 09:46 | NUR ---
Initial: Pt admit for COPD exacerbation and acute respiratory failure. Pt initially on a heart healthy pureed diet with thin liquids per physician/ST recs following BSS d/t difficulty chewing secondary to being edentulous. Pt has been eating well, documented with average 82% PO intake of meals meeting 100% estimated energy needs and 95% estimated protein needs. Pt continues on a pureed diet with thin liquids per ST recs though now with a CHO controlled restriction which is appropriate given BG up to 461 mg/dL 02/12. Per EMR pt with T2DM, most recent A1c 7.5% 02/04 which is well controlled for geriatric age, DM education not warranted at this time. LBM 02/12 x 4 per I&O. No nutrition intervention implemented at this time. Will continue to follow and make recommendations as appropriate. Recommendations: 1) Continue pureed CHO controlled diet with thin liquids per ST recs 2) Monitor need for ONS/additional protein 3) Bowel care PRN 4) Scaled weight this admit; subsequent weekly scaled weights Addendum: 02/13/23 at [address] Amended: Links added.
[2023-02-13] MEDS: insulin Lispro (HumaLOG) vial - multi-dose SQ SCH ×2 (09:49→19:46)
[2023-02-13] MEDS: fenofibrate 48mg tablet PO SCH (10:01)
[2023-02-13] MEDS: cholecalciferol (vitamin D3) 1,000 unit (25mcg) tablet PO SCH (10:02)
[2023-02-13] MEDS: cyanocobalamin 500mcg tablet PO SCH (10:02)
[2023-02-13] MEDS: pantoprazole 40mg Tablet.DR PO SCH (10:02)
[2023-02-13] MEDS: guaiFENesin ER 600mg tablet PO SCH ×2 (10:04→20:38)
--- NOTE | 2023-02-13 10:35 | NUR ---
PAGER ID: [phone] MESSAGE: [id number], Alesia Hernandez. Pt is hypotensive, manually it was 80/58. I took it a few times. I held his lasix and coreg and aldactone. Melania [facility] [id number].
--- NOTE | 2023-02-13 18:50 | NUR ---
Problems reprioritized. Patient report given, questions answered & plan of care reviewed with Caitie OLIVER and Maria Luz RN, patient stable at transfer of care.
[2023-02-13] MEDS: aspirin 81mg, enteric-coated 1 TAB TABLET.DR PO SCH (20:38)
[2023-02-13] MEDS: atorvastatin 20mg tablet PO SCH (20:38)
[2023-02-13] MEDS: insulin glargine (Lantus) pen - multi-dose SQ SCH (21:00)
[2023-02-14] VITALS (15 sets, daily range): BP systolic 80–102; BP diastolic 50–63; PULSE 76–95; RESP 16–20; TEMP 97.3–97.9; O2SAT 92–99
[2023-02-14] MEDS: ipratropium/albuterol 3ml nebule IH SCH ×4 (02:32→20:19)
[2023-02-14 06:55] LABS: BASOPHILS # (AUTO) 0.1 X10'3 (0-0.2); BASOPHILS % (AUTO) 1.4 % (0-1); EOSINOPHILS # (AUTO) 0.1 X10'3 (0-0.9); EOSINOPHILS % (AUTO) 1.6 % (0-6); HEMATOCRIT 42.1 % (42.0-52.0); HEMOGLOBIN 13.5 g/dl (14.0-17.9); LYMPHOCYTES # (AUTO) 1.6 X10'3 (1.1-4.8); LYMPHOCYTES % (AUTO) 18.3 % (21-51); MEAN CORPUSCULAR HEMOGLOBIN 27.7 PG (27.0-31.0); MEAN CORPUSCULAR VOLUME 86.6 FL (78-98); MEAN PLATELET VOLUME 7.4 FL (7.4-10.4); MONOCYTES # (AUTO) 0.9 X10'3 (0-0.9); MONOCYTES % (AUTO) 9.8 % (2-12); NEUTROPHILS % (AUTO) 68.9 % (42-75); PLATELET COUNT 275 X10'3 (140-440); RED BLOOD COUNT 4.86 X10'6 (4.70-6.10); RED CELL DISTRIBUTION WIDTH 16.2 % (11.5-14.5); WHITE BLOOD COUNT 8.7 X10'3 (4.5-11.0)
[2023-02-14] MEDS: pantoprazole 40mg Tablet.DR PO SCH ×2 (06:59→10:26)
[2023-02-14 07:02] LABS: ALBUMIN 2.8 G/DL (3.4-5.0); ANION GAP 2 (8-16); BLOOD UREA NITROGEN 27 MG/DL (7-18); BUN/CREATININE RATIO 36.5 (10.0-20.0); CALCIUM 9.2 MG/DL (8.5-10.1); CHLORIDE 98 MMOL/L (99-107); CREATININE 0.74 MG/DL (0.60-1.10); GLUCOSE 97 MG/DL (70-104); POTASSIUM 4.4 MMOL/L (3.5-5.1); SODIUM 137 MMOL/L (135-145); eCRCL 81 ML/MIN; eGFR > 90 ML/MIN
[2023-02-14] MEDS: furosemide 40mg/4ml inj IV SCH ×2 (07:04→19:25)
[2023-02-14] MEDS: carVEDilol 3.125mg tablet PO SCH ×2 (07:05→19:25)
[2023-02-14] MEDS: spironolactone 25 MG tablet PO SCH (07:05)
[2023-02-14] MEDS: lisinopril 2.5mg tablet PO SCH ×2 (07:06→07:07)
--- NOTE | 2023-02-14 07:15 | NUR ---
Patient report given, questions answered & plan of care reviewed with MELODY Mcguire
[2023-02-14] MEDS: budesonide 0.5mg/2ml UD nebule IH SCH (07:51)
[2023-02-14] MEDS: K and/or MAG REPLACEMENT MC SCH ×2 (08:00→19:25)
[2023-02-14] MEDS: cholecalciferol (vitamin D3) 1,000 unit (25mcg) tablet PO SCH (10:22)
[2023-02-14] MEDS: aspirin 81mg, enteric-coated 1 TAB TABLET.DR PO SCH (10:25)
[2023-02-14] MEDS: cyanocobalamin 500mcg tablet PO SCH (10:26)
[2023-02-14] MEDS: fenofibrate 48mg tablet PO SCH (10:26)
[2023-02-14] MEDS: guaiFENesin ER 600mg tablet PO SCH ×2 (10:26→20:11)
[2023-02-14] MEDS: heparin, porcine 5000 units/ml vial SQ SCH ×2 (10:27→20:10)
[2023-02-14 13:11] LABS: BILIRUBIN,URINE NEGATIVE (Neg); CLARITY,URINE SLIGHTLY CLOUDY (Clear); COLOR,URINE YELLOW (Yellow); GLUCOSE, URINE NEGATIVE (Neg); KETONES,URINE NEGATIVE (Neg); LEUKOCYTE ESTERASE ,URINE SMALL (Neg); NITRITES, URINE NEGATIVE (Neg); OCCULT BLOOD,URINE MODERATE (Neg); PROTEIN,URINE TRACE mg/dl (Neg)
[2023-02-14 13:16] LABS: UA COLLECTION TYPE FOLEY CATH
[2023-02-14 13:20] LABS: RBC,URINE TNTC /HPF (0-2); SQUAMOUS EPITHELIAL CELL,UR FEW /LPF (FEW)
[2023-02-14 13:21] LABS: BACTERIA,URINE NONE SEEN /HPF (Neg); TRANSITIONAL EPI CELLS,URINE FEW /HPF; WBC CLUMPS,URINE FEW /HPF (NEGATIVE)
[2023-02-14] MEDS: insulin Lispro (HumaLOG) vial - multi-dose SQ SCH ×2 (13:22→19:14)
[2023-02-14] MEDS: atorvastatin 20mg tablet PO SCH (20:10)
[2023-02-14] MEDS: insulin glargine (Lantus) pen - multi-dose SQ SCH (22:07)
[2023-02-15] VITALS (9 sets, daily range): BP systolic 88–92; BP diastolic 43–54; PULSE 86–98; RESP 14–18; TEMP 97.4–98.2; O2SAT 93–98
[2023-02-15] MEDS: ipratropium/albuterol 3ml nebule IH SCH ×3 (02:51→15:00)
--- NOTE | 2023-02-15 06:41 | NUR ---
Patient in room PCU 3014. I have received report from kaelyn OLIVER and had the opportunity to ask questions and assume patient care.
--- NOTE | 2023-02-15 06:41 | NUR ---
Patient report given, questions answered & plan of care reviewed with MELODY Caruso
[2023-02-15] MEDS: furosemide 40mg/4ml inj IV SCH (07:11)
[2023-02-15] MEDS: spironolactone 25 MG tablet PO SCH (07:11)
[2023-02-15] MEDS: carVEDilol 3.125mg tablet PO SCH (07:12)
[2023-02-15] MEDS: lisinopril 2.5mg tablet PO SCH ×2 (07:13)
[2023-02-15] MEDS: heparin, porcine 5000 units/ml vial SQ SCH (07:14)
[2023-02-15] MEDS: cholecalciferol (vitamin D3) 1,000 unit (25mcg) tablet PO SCH (07:15)
[2023-02-15] MEDS: cyanocobalamin 500mcg tablet PO SCH (07:15)
[2023-02-15] MEDS: guaiFENesin ER 600mg tablet PO SCH (07:15)
[2023-02-15] MEDS: pantoprazole 40mg Tablet.DR PO SCH (07:15)
[2023-02-15] MEDS: budesonide 0.5mg/2ml UD nebule IH SCH (07:52)
[2023-02-15] MEDS: fenofibrate 48mg tablet PO SCH (07:54)
[2023-02-15] MEDS: K and/or MAG REPLACEMENT MC SCH (08:00)
--- NOTE | 2023-02-15 09:35 | NUR ---
PAGER ID: [phone] MESSAGE: MELODY FERNANDES, PCU, [id number]. RE: [id number]. IS UROLOGIST COMING TODAY FOR BLOOD IN [place]? AND IS PT. DISCHARGING TODAY? THANK YOU
[2023-02-15] MEDS: insulin Lispro (HumaLOG) vial - multi-dose SQ SCH ×2 (10:13→13:40)
[2023-02-15] MEDS: atorvastatin 20mg tablet PO SCH (10:48)
--- NOTE | 2023-02-15 14:08 | NUR ---
IYER TAKEN OUT PER MD ORDERS. 1400ML DRAINED, PINK/RED COLORED URINE WITH SMALL BLOOD CLOTS. PT. TOLERATED WELL. WILL MONITOR FOR URINE OUTPUT
--- NOTE | 2023-02-15 15:07 | NUR ---
PAGER ID: [phone] MESSAGE: MELODY FERNANDES, [facility], [id number]. RE: [id number]. PT. AND WONDERING IF DISCHARGE IS TODAY? PT. HAS NO VEHICLE, AND IS HERE BY A FREIND. SHELLY. THANKS.
[2023-02-15] MEDS ORDERED: CEPH500C2 PO (15:18)
[2023-02-15] MEDS ORDERED: PRED10TA23 PO (15:22)
[2023-02-15] MEDS ORDERED: ATR0.5NEB NEB (16:07)
--- NOTE | 2023-02-15 16:17 | NUR ---
PT. ALERT, ORIENTATED, AND STABLE ON DISCHARGE. PT. IV CANULA WHOLE AND INTACT UPON REMOVAL, PT. AND FRIEND EDUCATED ON NEW PRESCRIPTIONS, CONTINUING MEDS, COPD, S/S OF AN HEART ATTACK, DIABETES CONTROL AND DIET, AND OXYGEN THERAPY. PT. LEFT WITH ALL BELONGINGS, PT. SAFELY ESCORTED INTO PRIVATE VEHICLE FROM A WHEELCHAIR. PT. EDUCATED TO FOLLOW UP WITH PRIMARY CARE PROVIDER AND UROLOGIST.
== END 2023-02-15 16:16 | disposition home health service (06) | DRG 291 ==
LOC: ER 07:21 → ED HOLD 09:39 → EDBEDREQ 02-11 07:50 → PCU 3S 02-11 08:31
PROVIDERS: ADMIT Internal Medicine; ATTEND Internal Medicine
DX: I50.23 Acute on chronic systolic (congestive) heart failure (principal); J96.01 Acute respiratory failure with hypoxia; J44.1 Chronic obstructive pulmonary disease with (acute) exacerbation; E87.1 Hypo-osmolality and hyponatremia; I25.2 Old myocardial infarction; D64.9 Anemia, unspecified; E78.00 Pure hypercholesterolemia, unspecified; F32.A Depression, unspecified; E11.65 Type 2 diabetes mellitus with hyperglycemia; Z88.5 Allergy status to narcotic agent; Z79.899 Other long term (current) drug therapy; Z88.8 Allergy status to other drugs, medicaments and biological substances; Z79.82 Long term (current) use of aspirin; Z79.84 Long term (current) use of oral hypoglycemic drugs
CPT/HCPCS: 36415; 71045; 74176; 80048; 80053; 81001; 82948; 83735; 83880; 84132; 84484; 85025; 87324; 87449; 92508; 92616; 93005; 94640; 94760; 96374; 96375; 99291; A4314; A4615; A6212; A6213; G0378; J1644; J1815; J1940; J2920; J2930; J3490; J7030

== ENCOUNTER 2023-04-09 19:02 | Inpatient (IN) | payer MEDICARE ==
[~2023-04-09] VITALS: Ht 172.7 cm; Wt 79.3 kg
[~2023-04-09 19:02] MED LIST changes: +ATR0.5NEB NEB; -IPRA3AMP31 NEB
[2023-04-09] MEDS ORDERED: albuterol 2.5 MG/3 ML nebule NEB STA (19:09)
[2023-04-09] MEDS ORDERED: succinylcholine 20mg/ml inj IV ONE (19:13)
[2023-04-09] MEDS ORDERED: midazolam 100mg in NS 100ml 100 ML IV PRN (19:25)
[2023-04-09 19:28] LABS: EOSINOPHILS # (AUTO) 0.1 X10'3 (0-0.9)
[2023-04-09 19:30] LABS: BASOPHILS # (AUTO) 0.1 X10'3 (0-0.2); EOSINOPHILS % (AUTO) 1.2 % (0-6); HEMATOCRIT 40.9 % (42.0-52.0); HEMOGLOBIN 12.8 g/dl (14.0-17.9); LYMPHOCYTES # (AUTO) 1.5 X10'3 (1.1-4.8); LYMPHOCYTES % (AUTO) 25.7 % (21-51); MEAN CORPUSCULAR HEMOGLOBIN 27.2 PG (27.0-31.0); MEAN CORPUSCULAR HGB CONC 31.2 g/dL (33.0-36.5); MEAN CORPUSCULAR VOLUME 87.3 FL (78-98); MEAN PLATELET VOLUME 8.2 FL (7.4-10.4); MONOCYTES # (AUTO) 0.3 X10'3 (0-0.9); MONOCYTES % (AUTO) 4.4 % (2-12); NEUTROPHILS # (AUTO) 3.9 X10'3 (1.8-7.7); NEUTROPHILS % (AUTO) 67.7 % (42-75); PLATELET COUNT 224 X10'3 (140-440); RED BLOOD COUNT 4.68 X10'6 (4.70-6.10); RED CELL DISTRIBUTION WIDTH 18.8 % (11.5-14.5); WHITE BLOOD COUNT 5.8 X10'3 (4.5-11.0)
[2023-04-09 19:38] LABS: ALANINE AMINOTRANSFERASE 190 U/L (12-78); ALBUMIN 3.2 G/DL (3.4-5.0); ALBUMIN/GLOBULIN RATIO 0.7 (1.1-1.5); ALKALINE PHOSPHATASE 102 IU/L (46-116); ANION GAP 7 (8-16); ASPARTATE AMINO TRANSFERASE 76 U/L (10-37); BILIRUBIN,TOTAL 1.4 MG/DL (0.1-1.0); BLOOD UREA NITROGEN 22 MG/DL (7-18); BUN/CREATININE RATIO 24.4 (10.0-20.0); CALCIUM 9.1 MG/DL (8.5-10.1); CHLORIDE 94 MMOL/L (99-107); GLUCOSE 137 MG/DL (70-104); POTASSIUM 4.7 MMOL/L (3.5-5.1); SODIUM 134 MMOL/L (135-145); TOTAL CARBON DIOXIDE 33.1 MMOL/L (24-32); TOTAL PROTEIN 8.1 G/DL (6.4-8.2); eCRCL 49 ML/MIN; eGFR 82 ML/MIN
[2023-04-09 19:42] VITALS: BP 132/86; PULSE 109; RESP 16; O2SAT 100
[2023-04-09 19:43] LABS: APTT 28 SECONDS (22-32); INR 1.1 INR; PROTHROMBIN TIME 11.9 SECONDS (9.0-12.0)
[2023-04-09 19:44] LABS: BILIRUBIN,URINE NEGATIVE (Neg); CLARITY,URINE CLOUDY (Clear); COLOR,URINE YELLOW (Yellow); GLUCOSE, URINE >=1000 mg/dl (Neg); KETONES,URINE NEGATIVE (Neg); LEUKOCYTE ESTERASE ,URINE SMALL (Neg); NITRITES, URINE POSITIVE (Neg); OCCULT BLOOD,URINE LARGE (Neg); PROTEIN,URINE TRACE mg/dl (Neg); UROBILINOGEN,URINE >=8.0 E.U/dL (0.2-1.0)
[2023-04-09 19:45] LABS: PRO BRAIN NATRIURETIC PEPTIDE 16949 PG/ML (0-450)
[2023-04-09 19:51] LABS: UA COLLECTION TYPE FOLEY CATH
[2023-04-09 19:53] LABS: RBC,URINE TNTC /HPF (0-2); WBC,URINE TNTC /HPF (0-4)
[2023-04-09 19:54] LABS: AMORPHOUS PHOSPHATES 2+; BACTERIA,URINE 4+ /HPF (Neg); SQUAMOUS EPITHELIAL CELL,UR FEW /LPF (FEW); TRANSITIONAL EPI CELLS,URINE FEW /HPF
[2023-04-09] MEDS ORDERED: CefTRIAXone 2gm/D5W 50ml BAG 50 ML IV ONE (20:00)
[2023-04-09] MEDS ORDERED: acetaminophen 1,000mg/100ml IV 100 ML IV ONE (20:00)
[2023-04-09] MEDS: FENTANYL-0.9 % NACL/PF 100 ML IV PRN (20:05)
[2023-04-09] MEDS ORDERED: normal saline 1000ML IV soln IVB ONE (20:40)
[2023-04-09] MEDS ORDERED: NORepinephrine 8mg/ 250ml NS 250 ML IV PRN (20:45)
[2023-04-09] MEDS ORDERED: magnesium hydroxide 30ml (MOM) UD suspension PO PRN (20:55)
[2023-04-09] MEDS ORDERED: acetaminophen 325mg tablet PO PRN ×2 (20:55)
[2023-04-09] MEDS ORDERED: PERFLUTREN PROTEIN-A MICROSPHR (Optison) 0.22 MG/ML 3ML VIAL IV ONE (20:55)
[2023-04-09 21:03] LABS: ABG BASE EXCESS -0.1 mmol/L (-2.0-2.0); ABG HCO3 24.8 mmol/L (22.0-26.0); ABG OXYGEN SATURATION 99.4 % (94-97); ABG PCO2 (T) 45.6 mmHg (35.0-48.0); ABG PH (T) 7.363 (7.340-7.440); ABG PO2 (T) 228.3 mmHg (75.0-100.0); FCOHb 0.1 % (0.0-3.9); FHHb 0.6 % (0.0-5.0); FMetHb 0.5 % (0.0-1.5); FO2Hb 98.8 % (94-97); MODE ac vc; PATIENT TEMPERATURE 39.1; RESPIRATORY RATE 16 b/min; TIDAL VOLUME 450 mL; TOTAL HEMOGLOBIN 11.6 G/dl (14.0-17.9)
[2023-04-09] MEDS ORDERED: PERFLUTREN PROTEIN-A MICROSPHR (Optison) 0.22 MG/ML 3ML VIAL IV PRN (21:45)
[2023-04-09] MEDS ORDERED: LidoCAINE 2% Topical Jelly 11mL syringe TOP ONE (21:45)
[2023-04-09] MEDS ORDERED: rocuronium 10mg/ml inj IV ONE (21:50)
[2023-04-09 22:19] VITALS: BP 101/65; PULSE 107; RESP 16; O2SAT 95
[2023-04-10] VITALS (36 sets, daily range): BP systolic 82–102; BP diastolic 48–63; PULSE 6–98; RESP 15–17; O2SAT 92–100
[2023-04-10] MEDS ORDERED: piperacillin/tazo 3.375gm/50ml 50 ML IV SCH
[2023-04-10] MEDS: heparin, porcine 5000 units/ml vial SQ SCH ×3 (00:30→16:40)
[2023-04-10] MEDS: piperacillin/tazo 4.5gm/100ml 100 ML IV SCH ×3 (00:30→16:40)
[2023-04-10 03:50] LABS: BASOPHILS % (AUTO) 0.2 % (0-1); EOSINOPHILS # (AUTO) 0.1 X10'3 (0-0.9); EOSINOPHILS % (AUTO) 0.4 % (0-6); HEMATOCRIT 35.7 % (42.0-52.0); HEMOGLOBIN 11.4 g/dl (14.0-17.9); LYMPHOCYTES # (AUTO) 0.2 X10'3 (1.1-4.8); LYMPHOCYTES % (AUTO) 1.6 % (21-51); MEAN CORPUSCULAR HEMOGLOBIN 27.4 PG (27.0-31.0); MEAN CORPUSCULAR HGB CONC 31.9 g/dL (33.0-36.5); MEAN CORPUSCULAR VOLUME 85.7 FL (78-98); MEAN PLATELET VOLUME 7.8 FL (7.4-10.4); MONOCYTES # (AUTO) 0.6 X10'3 (0-0.9); NEUTROPHILS # (AUTO) 13.4 X10'3 (1.8-7.7); NEUTROPHILS % (AUTO) 93.8 % (42-75); PLATELET COUNT 204 X10'3 (140-440); RED BLOOD COUNT 4.16 X10'6 (4.70-6.10); RED CELL DISTRIBUTION WIDTH 18.3 % (11.5-14.5); WHITE BLOOD COUNT 14.3 X10'3 (4.5-11.0)
[2023-04-10 03:57] LABS: APTT 29 SECONDS (22-32); INR 1.2 INR; PROTHROMBIN TIME 12.9 SECONDS (9.0-12.0)
[2023-04-10 04:02] LABS: ALANINE AMINOTRANSFERASE 143 U/L (12-78); ALBUMIN 2.4 G/DL (3.4-5.0); ALBUMIN/GLOBULIN RATIO 0.6 (1.1-1.5); ALKALINE PHOSPHATASE 74 IU/L (46-116); ANION GAP 6 (8-16); ASPARTATE AMINO TRANSFERASE 49 U/L (10-37); BILIRUBIN,TOTAL 1.9 MG/DL (0.1-1.0); BLOOD UREA NITROGEN 23 MG/DL (7-18); BUN/CREATININE RATIO 31.1 (10.0-20.0); CALCIUM 8.2 MG/DL (8.5-10.1); CHLORIDE 97 MMOL/L (99-107); CREATININE 0.74 MG/DL (0.60-1.10); GLUCOSE 109 MG/DL (70-104); MAGNESIUM 1.4 MG/DL (1.5-2.4); PHOSPHORUS 3.2 MG/DL (2.3-4.5); POTASSIUM 3.4 MMOL/L (3.5-5.1); SODIUM 134 MMOL/L (135-145); TOTAL CARBON DIOXIDE 30.7 MMOL/L (24-32); TOTAL PROTEIN 6.2 G/DL (6.4-8.2); eCRCL 60 ML/MIN; eGFR > 90 ML/MIN
[2023-04-10 04:16] LABS: ABG BASE EXCESS 3.6 mmol/L (-2.0-2.0); ABG OXYGEN SATURATION 96.7 % (94-97); ABG PCO2 (T) 49.3 mmHg (35.0-48.0); ABG PH (T) 7.392 (7.340-7.440); ABG PO2 (T) 90.3 mmHg (75.0-100.0); ALLEN'S TEST Modified; FHHb 3.3 % (0.0-5.0); FMetHb 0.3 % (0.0-1.5); FO2Hb 95.4 % (94-97); MODE ac vc; PEEP 5 cm H2O; RESPIRATORY RATE 16 b/min; TIDAL VOLUME 450 mL; TOTAL HEMOGLOBIN 12.7 G/dl (14.0-17.9)
[2023-04-10] MEDS ORDERED: potassium Cl 40MEQ/270ML bag 270 ML IV PRN (05:30)
[2023-04-10] MEDS ORDERED: potassium Cl 20 mEq SR tablet PO PRN (05:30)
[2023-04-10] MEDS ORDERED: magnesium 2GM in 50ml NS 50 ML IV PRN (05:30)
[2023-04-10] MEDS ORDERED: potassium Cl 20mEq/100mL bag 100 ML IV ONE ×2 (05:30)
[2023-04-10] MEDS ORDERED: potassium Cl 40MEQ/1/2NS 520ml 520 ML IV PRN (05:30)
[2023-04-10] MEDS ORDERED: magnesium 4gm in 100ml NS 100 ML IV PRN (05:30)
[2023-04-10] MEDS: FENTANYL-0.9 % NACL/PF 100 ML IV PRN ×2 (07:22→23:22)
[2023-04-10] MEDS ORDERED: famotidine 20mg tablet PO SCH (08:00)
[2023-04-10] MEDS ORDERED: famotidine/PF 10 mg/ml inj IV SCH ×2 (08:00→14:41)
[2023-04-10] MEDS: acetaminophen 1,000mg/100ml IV 100 ML IV PRN (09:24)
[2023-04-10] MEDS ORDERED: vancomycin/NS 1 GM ADD-VANTAGE 250 ML IV ONE (10:40)
[2023-04-10] MEDS: DOBUTamine-DoBUTrex 500mg/D5W 250 ML IV SCH (10:43)
[2023-04-10] MEDS ORDERED: VANCOmycin 2,000MG in NS 500ml IV soln IV ONE (11:00)
[2023-04-10] MEDS ORDERED: ATOR10TA87 PO (12:51)
[2023-04-10] MEDS ORDERED: BUDE0.5A11 IH (12:52)
[2023-04-10] MEDS ORDERED: DOCU100C40 PO (12:54)
[2023-04-10] MEDS ORDERED: IPRA3AMP31 IH (12:57)
[2023-04-10] MEDS ORDERED: EMPA10TA PO (12:58)
[2023-04-10] MEDS ORDERED: LOPE2TAB25 PO (13:00)
[2023-04-10] MEDS ORDERED: METF-900 PO (13:04)
[2023-04-10] MEDS ORDERED: MULT-381 PO (13:07)
[2023-04-10] MEDS ORDERED: METF-1203 PO (13:07)
[2023-04-10] MEDS ORDERED: HYDR-3973 PO (13:09)
[2023-04-10] MEDS: NORepinephrine 8mg/ 250ml NS 250 ML IV PRN ×2 (13:54→21:08)
[2023-04-10] MEDS: vancomycin/NS 1 GM ADD-VANTAGE 250 ML IV SCH (21:08)
[2023-04-11] VITALS (44 sets, daily range): BP systolic 78–109; BP diastolic 43–76; PULSE 78–130; RESP 16–28; O2SAT 94–99
[2023-04-11] MEDS: piperacillin/tazo 4.5gm/100ml 100 ML IV SCH ×4 (00:25→23:31)
[2023-04-11] MEDS: heparin, porcine 5000 units/ml vial SQ SCH ×4 (00:26→23:31)
[2023-04-11 02:28] LABS: BASOPHILS # (AUTO) 0.1 X10'3 (0-0.2); BASOPHILS % (AUTO) 0.6 % (0-1); EOSINOPHILS % (AUTO) 0.2 % (0-6); HEMATOCRIT 35.6 % (42.0-52.0); LYMPHOCYTES # (AUTO) 0.7 X10'3 (1.1-4.8); LYMPHOCYTES % (AUTO) 4.2 % (21-51); MEAN CORPUSCULAR HEMOGLOBIN 26.6 PG (27.0-31.0); MONOCYTES # (AUTO) 0.9 X10'3 (0-0.9); MONOCYTES % (AUTO) 4.8 % (2-12); NEUTROPHILS % (AUTO) 90.2 % (42-75); PLATELET COUNT 218 X10'3 (140-440); RED BLOOD COUNT 4.13 X10'6 (4.70-6.10); RED CELL DISTRIBUTION WIDTH 18.7 % (11.5-14.5); WHITE BLOOD COUNT 17.7 X10'3 (4.5-11.0)
[2023-04-11 02:43] LABS: ALANINE AMINOTRANSFERASE 104 U/L (12-78); ALBUMIN/GLOBULIN RATIO 0.5 (1.1-1.5); ALKALINE PHOSPHATASE 68 IU/L (46-116); ANION GAP 7 (8-16); ASPARTATE AMINO TRANSFERASE 42 U/L (10-37); BILIRUBIN,TOTAL 1.6 MG/DL (0.1-1.0); BLOOD UREA NITROGEN 19 MG/DL (7-18); BUN/CREATININE RATIO 30.2 (10.0-20.0); CALCIUM 8.1 MG/DL (8.5-10.1); CHLORIDE 100 MMOL/L (99-107); CREATININE 0.63 MG/DL (0.60-1.10); GLUCOSE 114 MG/DL (70-104); MAGNESIUM 2.4 MG/DL (1.5-2.4); POTASSIUM 4.1 MMOL/L (3.5-5.1); PREALBUMIN 7.3 MG/DL (19-36); SODIUM 135 MMOL/L (135-145); TOTAL PROTEIN 5.8 G/DL (6.4-8.2); eCRCL 97 ML/MIN; eGFR > 90 ML/MIN
[2023-04-11 02:47] LABS: APTT 33 SECONDS (22-32); INR 1.3 INR; PROTHROMBIN TIME 13.4 SECONDS (9.0-12.0)
[2023-04-11 03:02] LABS: ANISOCYTOSIS 2+; PLATELET ESTIMATE NORMAL
[2023-04-11 03:03] LABS: ELLIPTOCYTES FEW; SCHISTOCYTES FEW
[2023-04-11] MEDS: NORepinephrine 8mg/ 250ml NS 250 ML IV PRN ×3 (03:45→17:44)
[2023-04-11 04:07] LABS: ABG BASE EXCESS 3.9 mmol/L (-2.0-2.0); ABG PCO2 (T) 45.6 mmHg (35.0-48.0); ABG PH (T) 7.422 (7.340-7.440); ALLEN'S TEST POSITIVE; FCOHb 0.9 % (0.0-3.9); FMetHb 0.3 % (0.0-1.5); FO2Hb 97.8 % (94-97); MODE VENT - AC; PATIENT TEMPERATURE 37.1; PEEP 5 cm H2O; RESPIRATORY RATE 16 b/min; TIDAL VOLUME 450 mL; TOTAL HEMOGLOBIN 12.3 G/dl (14.0-17.9)
[2023-04-11] MEDS ORDERED: amiodarone 150mg/dext, iso-os 100 ML IV ONE ×2 (07:45→07:48)
[2023-04-11] MEDS: amiodarone/D5 360MG/200ML BAG 200 ML IV SCH ×4 (08:06→19:56)
[2023-04-11 08:53] LABS: TOTAL CELLS COUNTED 100
[2023-04-11] MEDS ORDERED: albuterol 2.5 MG/3 ML nebule NEB PRN (10:30)
[2023-04-11] MEDS ORDERED: cyclobenzaprine 10mg tablet PO PRN (10:30)
[2023-04-11] MEDS ORDERED: hydrocortisone sod succ/PF 250mg/2ml inj. IV SCH (10:45)
[2023-04-11] MEDS: vancomycin/NS 1 GM ADD-VANTAGE 250 ML IV SCH ×2 (11:05→23:31)
[2023-04-11] MEDS ORDERED: ipratropium/albuterol 3ml nebule IH SCH ×2 (12:00→15:00)
[2023-04-11] MEDS ORDERED: hydrocortisone sod succ/PF 100mg/2ml inj. IV ONE (12:00)
[2023-04-11] MEDS: fludrocortisone acetate 0.1mg tablet PO SCH (12:40)
[2023-04-11] MEDS: FENTANYL-0.9 % NACL/PF 100 ML IV PRN (12:40)
[2023-04-11] MEDS ORDERED: loperamide 2mg capsule PO PRN (13:20)
[2023-04-11] MEDS: ipratropium/albuterol 3ml nebule IH SCH ×4 (13:40→23:37)
[2023-04-11] MEDS: DOBUTamine-DoBUTrex 500mg/D5W 250 ML IV SCH (14:58)
[2023-04-11] MEDS: hydrocortisone sod succ/PF 100mg/2ml inj. IV SCH ×2 (16:05→23:31)
[2023-04-11] MEDS: propofol 1000mg/100ml bottle 100 ML IV SCH (18:37)
[2023-04-11] MEDS: budesonide 0.5mg/2ml UD nebule IH SCH (19:24)
[2023-04-11] MEDS: carVEDilol 3.125mg tablet PO SCH (19:49)
[2023-04-11] MEDS: aspirin 81mg, enteric-coated 1 TAB TABLET.DR PO SCH (19:56)
[2023-04-11] MEDS: furosemide 20MG tablet PO SCH (19:56)
[2023-04-11] MEDS: guaiFENesin ER 600mg tablet PO SCH (19:56)
[2023-04-11] MEDS ORDERED: docusate sod 100mg capsule PO SCH (20:00)
[2023-04-11] MEDS ORDERED: glucagon, human recombinant 1mg kit SUBCUT PRN (20:05)
[2023-04-11] MEDS ORDERED: MESSAGE TO PHARMACY PO ONE (20:05)
[2023-04-11] MEDS ORDERED: DEXTROSE 15 GM of carb/4 tabs (each vial/BOTTLE has 4 tablets) PO PRN ×2 (20:05)
[2023-04-11] MEDS ORDERED: dextrose 50%-water 50ml dispensing syringe IV PRN ×2 (20:05)
[2023-04-11 20:39] LABS: HEMOGLOBIN A1C 7.2 % (4.5-6.2)
[2023-04-11] MEDS ORDERED: budesonide 0.5mg/2ml UD nebule IH SCH (21:00)
[2023-04-11] MEDS: insulin glargine (Lantus) pen - multi-dose SQ SCH (21:51)
[2023-04-11] MEDS: insulin regular, human U-100 3ml vial - multi-dose SQ SCH (22:26)
[2023-04-11] MEDS ORDERED: VANCOMYCIN LEVEL IV ONE (22:30)
[2023-04-12] VITALS (48 sets, daily range): BP systolic 94–113; BP diastolic 41–79; PULSE 97–125; RESP 16–22; O2SAT 93–97
[2023-04-12] MEDS: NORepinephrine 8mg/ 250ml NS 250 ML IV PRN ×3 (00:46→18:48)
[2023-04-12] MEDS: insulin regular, human U-100 3ml vial - multi-dose SQ SCH ×4 (02:06→20:17)
[2023-04-12 02:26] LABS: APTT 31 SECONDS (22-32); INR 1.1 INR; PROTHROMBIN TIME 11.9 SECONDS (9.0-12.0)
[2023-04-12 02:29] LABS: BASOPHILS % (AUTO) 0 % (0-1); EOSINOPHILS % (AUTO) 0 % (0-6); HEMATOCRIT 36.5 % (42.0-52.0); HEMOGLOBIN 11.5 g/dl (14.0-17.9); LYMPHOCYTES # (AUTO) 0.4 X10'3 (1.1-4.8); LYMPHOCYTES % (AUTO) 2.4 % (21-51); MEAN CORPUSCULAR HEMOGLOBIN 26.8 PG (27.0-31.0); MEAN CORPUSCULAR HGB CONC 31.4 g/dL (33.0-36.5); MEAN CORPUSCULAR VOLUME 85.4 FL (78-98); MEAN PLATELET VOLUME 8.3 FL (7.4-10.4); MONOCYTES # (AUTO) 0.4 X10'3 (0-0.9); MONOCYTES % (AUTO) 2.4 % (2-12); NEUTROPHILS # (AUTO) 16.5 X10'3 (1.8-7.7); NEUTROPHILS % (AUTO) 95.2 % (42-75); PLATELET COUNT 278 X10'3 (140-440); RED BLOOD COUNT 4.28 X10'6 (4.70-6.10); RED CELL DISTRIBUTION WIDTH 18.8 % (11.5-14.5); WHITE BLOOD COUNT 17.3 X10'3 (4.5-11.0)
[2023-04-12] MEDS: ipratropium/albuterol 3ml nebule IH SCH ×6 (02:58→22:55)
[2023-04-12 03:01] LABS: ALANINE AMINOTRANSFERASE 86 U/L (12-78); ALBUMIN 2.1 G/DL (3.4-5.0); ALBUMIN/GLOBULIN RATIO 0.5 (1.1-1.5); ALKALINE PHOSPHATASE 79 IU/L (46-116); ANION GAP 9 (8-16); ASPARTATE AMINO TRANSFERASE 25 U/L (10-37); BLOOD UREA NITROGEN 24 MG/DL (7-18); BUN/CREATININE RATIO 32.9 (10.0-20.0); CHLORIDE 100 MMOL/L (99-107); CREATININE 0.73 MG/DL (0.60-1.10); GLUCOSE 236 MG/DL (70-104); PHOSPHORUS 3.2 MG/DL (2.3-4.5); POTASSIUM 4.2 MMOL/L (3.5-5.1); SODIUM 136 MMOL/L (135-145); TOTAL CARBON DIOXIDE 27.4 MMOL/L (24-32); TOTAL PROTEIN 6.4 G/DL (6.4-8.2); TRIGLYCERIDES 126 MG/DL (20-135); eCRCL 83 ML/MIN; eGFR > 90 ML/MIN
[2023-04-12 03:28] LABS: ABG HCO3 26.2 mmol/L (22.0-26.0); ABG OXYGEN SATURATION 96.2 % (94-97); ABG PCO2 (T) 39.3 mmHg (35.0-48.0); ABG PH (T) 7.441 (7.340-7.440); ABG PO2 (T) 78.3 mmHg (75.0-100.0); ALLEN'S TEST Modified; FCOHb 0.8 % (0.0-3.9); FHHb 3.8 % (0.0-5.0); FMetHb 0.3 % (0.0-1.5); FO2Hb 95.1 % (94-97); MODE VENT - AC; PEEP 5 cm H2O; RESPIRATORY RATE 16 b/min; TIDAL VOLUME 450 mL; TOTAL HEMOGLOBIN 12.6 G/dl (14.0-17.9)
[2023-04-12 03:52] LABS: ANISOCYTOSIS 2+; PLATELET ESTIMATE NORMAL
[2023-04-12 04:01] LABS: BURR CELLS 1+; ELLIPTOCYTES 2+; HYPOCHROMASIA 1+; LARGE PLATELETS FEW; POIKILOCYTOSIS 2+
[2023-04-12] MEDS: FENTANYL-0.9 % NACL/PF 100 ML IV PRN (06:26)
[2023-04-12] MEDS: budesonide 0.5mg/2ml UD nebule IH SCH ×2 (07:11→19:07)
[2023-04-12] MEDS: docusate sodium 100mg/10ml UD cup PO SCH ×2 (07:22→20:13)
[2023-04-12] MEDS: hydrocortisone sod succ/PF 100mg/2ml inj. IV SCH ×2 (07:22→16:12)
[2023-04-12] MEDS: pantoprazole 40 MG vial IV SCH (07:22)
[2023-04-12] MEDS: heparin, porcine 5000 units/ml vial SQ SCH ×2 (07:23→16:13)
[2023-04-12] MEDS: piperacillin/tazo 4.5gm/100ml 100 ML IV SCH (07:23)
[2023-04-12] MEDS: guaiFENesin ER 600mg tablet PO SCH ×2 (07:23→20:14)
[2023-04-12] MEDS: atorvastatin 10mg tablet PO SCH (07:24)
[2023-04-12] MEDS: cholecalciferol (vitamin D3) 1,000 unit (25mcg) tablet PO SCH (07:24)
[2023-04-12] MEDS: cyanocobalamin 500mcg tablet PO SCH (07:24)
[2023-04-12] MEDS: multivitamins, therapeutics tablet PO SCH (07:24)
[2023-04-12] MEDS: furosemide 20MG tablet PO SCH ×2 (07:24→20:14)
[2023-04-12] MEDS: fenofibrate 48mg tablet PO SCH (07:24)
[2023-04-12] MEDS: fludrocortisone acetate 0.1mg tablet PO SCH (07:24)
[2023-04-12] MEDS: spironolactone 25 MG tablet PO SCH (07:25)
[2023-04-12] MEDS: carVEDilol 3.125mg tablet PO SCH ×2 (07:25→18:49)
[2023-04-12] MEDS: EMPAGLIFLOZIN 10 MG TABLET PO SCH (07:25)
[2023-04-12] MEDS: lisinopril 2.5mg tablet PO SCH (07:26)
[2023-04-12] MEDS ORDERED: pantoprazole 40mg Tablet.DR PO SCH (07:30)
[2023-04-12] MEDS: amiodarone/D5 360MG/200ML BAG 200 ML IV SCH ×3 (07:31→18:48)
[2023-04-12] MEDS ORDERED: linezolid 600mg/300ml PREMIX 300 ML IV SCH (08:00)
[2023-04-12] MEDS ORDERED: metFORMIN 500mg tablet PO SCH (08:00)
[2023-04-12] MEDS: CefTRIAXone/D5W-Rocephin 1gm 50 ML IV SCH (11:49)
[2023-04-12] MEDS: erythromycin ethylsuccinate 200mg/5ml 200ml bottle OGT SCH (11:57)
[2023-04-12] MEDS: acetaminophen 1,000mg/100ml IV 100 ML IV PRN ×2 (14:00→21:56)
[2023-04-12] MEDS: propofol 1000mg/100ml bottle 100 ML IV SCH (17:08)
[2023-04-12] MEDS: DOBUTamine-DoBUTrex 500mg/D5W 250 ML IV SCH (18:48)
[2023-04-12] MEDS: linezolid 600mg/300ml PREMIX 300 ML IV SCH (19:38)
[2023-04-12] MEDS ORDERED: metoclopramide 5 mg/ml inj IV ONE (20:05)
[2023-04-12] MEDS: aspirin 81mg, enteric-coated 1 TAB TABLET.DR PO SCH (20:14)
[2023-04-12] MEDS: insulin glargine (Lantus) pen - multi-dose SQ SCH (20:18)
[2023-04-13] VITALS (44 sets, daily range): BP systolic 93–108; BP diastolic 38–75; PULSE 82–123; RESP 14–29; O2SAT 92–97
[2023-04-13] MEDS ORDERED: digoxin 250mcg/ml 2ml ampule IV ONE (00:15)
[2023-04-13] MEDS ORDERED: metoclopramide 5 mg/ml inj IV ONE (00:15)
[2023-04-13] MEDS: hydrocortisone sod succ/PF 100mg/2ml inj. IV SCH ×3 (00:20→16:18)
[2023-04-13] MEDS: heparin, porcine 5000 units/ml vial SQ SCH ×3 (00:22→16:18)
[2023-04-13] MEDS: insulin regular, human U-100 3ml vial - multi-dose SQ SCH ×2 (01:45→19:02)
[2023-04-13] MEDS: amiodarone/D5 360MG/200ML BAG 200 ML IV SCH ×4 (01:45→17:04)
[2023-04-13 01:58] LABS: HEMOGLOBIN 11.1 g/dl (14.0-17.9); RED BLOOD COUNT 4.09 X10'6 (4.70-6.10)
[2023-04-13 02:02] LABS: BASOPHILS % (AUTO) 0.1 % (0-1); EOSINOPHILS % (AUTO) 0 % (0-6); HEMATOCRIT 34.3 % (42.0-52.0); LYMPHOCYTES % (AUTO) 6.2 % (21-51); MEAN CORPUSCULAR HEMOGLOBIN 27.2 PG (27.0-31.0); MEAN CORPUSCULAR HGB CONC 32.4 g/dL (33.0-36.5); MEAN CORPUSCULAR VOLUME 83.8 FL (78-98); MONOCYTES # (AUTO) 0.6 X10'3 (0-0.9); NEUTROPHILS # (AUTO) 13.7 X10'3 (1.8-7.7); NEUTROPHILS % (AUTO) 89.7 % (42-75); PLATELET COUNT 274 X10'3 (140-440); WHITE BLOOD COUNT 15.3 X10'3 (4.5-11.0)
[2023-04-13 02:03] LABS: APTT 29 SECONDS (22-32); INR 1.1 INR; PROTHROMBIN TIME 12.1 SECONDS (9.0-12.0)
[2023-04-13 02:06] LABS: ALANINE AMINOTRANSFERASE 72 U/L (12-78); ALBUMIN/GLOBULIN RATIO 0.5 (1.1-1.5); ALKALINE PHOSPHATASE 65 IU/L (46-116); ANION GAP 5 (8-16); ASPARTATE AMINO TRANSFERASE 25 U/L (10-37); BILIRUBIN,TOTAL 0.9 MG/DL (0.1-1.0); BLOOD UREA NITROGEN 24 MG/DL (7-18); BUN/CREATININE RATIO 32.4 (10.0-20.0); CALCIUM 7.8 MG/DL (8.5-10.1); CHLORIDE 99 MMOL/L (99-107); CREATININE 0.74 MG/DL (0.60-1.10); GLUCOSE 113 MG/DL (70-104); MAGNESIUM 1.8 MG/DL (1.5-2.4); PHOSPHORUS 2.6 MG/DL (2.3-4.5); POTASSIUM 3.4 MMOL/L (3.5-5.1); SODIUM 133 MMOL/L (135-145); TOTAL CARBON DIOXIDE 28.9 MMOL/L (24-32); TOTAL PROTEIN 5.9 G/DL (6.4-8.2); eCRCL 82 ML/MIN; eGFR > 90 ML/MIN
[2023-04-13] MEDS: ipratropium/albuterol 3ml nebule IH SCH ×6 (02:59→23:12)
[2023-04-13 03:11] LABS: ABG BASE EXCESS 5.9 mmol/L (-2.0-2.0); ABG HCO3 28.4 mmol/L (22.0-26.0); ABG OXYGEN SATURATION 95.7 % (94-97); ABG PCO2 (T) 34.9 mmHg (35.0-48.0); ABG PH (T) 7.531 (7.340-7.440); ABG PO2 (T) 74.2 mmHg (75.0-100.0); ALLEN'S TEST POSITIVE; FCOHb 0.5 % (0.0-3.9); FHHb 4.3 % (0.0-5.0); FMetHb 0.3 % (0.0-1.5); FO2Hb 94.9 % (94-97); MODE VENT - AC; PATIENT TEMPERATURE 37.7; PEEP 5 cm H2O; RESPIRATORY RATE 16 b/min; TIDAL VOLUME 450 mL; TOTAL HEMOGLOBIN 11.9 G/dl (14.0-17.9)
[2023-04-13] MEDS: FENTANYL-0.9 % NACL/PF 100 ML IV PRN (03:58)
[2023-04-13] MEDS: propofol 1000mg/100ml bottle 100 ML IV SCH (04:30)
[2023-04-13] MEDS: budesonide 0.5mg/2ml UD nebule IH SCH ×2 (07:08→19:14)
[2023-04-13] MEDS ORDERED: metoclopramide 5 mg/ml inj IV PRN (08:00)
[2023-04-13] MEDS: EMPAGLIFLOZIN 10 MG TABLET PO SCH (08:00)
[2023-04-13] MEDS: carVEDilol 3.125mg tablet PO SCH ×2 (08:00→19:42)
[2023-04-13] MEDS: lisinopril 2.5mg tablet PO SCH (08:00)
[2023-04-13] MEDS: pantoprazole 40 MG vial IV SCH (08:25)
[2023-04-13] MEDS: linezolid 600mg/300ml PREMIX 300 ML IV SCH ×2 (08:25→19:48)
[2023-04-13] MEDS: CefTRIAXone/D5W-Rocephin 1gm 50 ML IV SCH (08:25)
[2023-04-13] MEDS: metoclopramide 5 mg/ml inj IV SCH ×3 (08:26→19:48)
[2023-04-13] MEDS: docusate sodium 100mg/10ml UD cup PO SCH (08:27)
[2023-04-13] MEDS: guaiFENesin ER 600mg tablet PO SCH ×2 (08:27→19:49)
[2023-04-13] MEDS: furosemide 20MG tablet PO SCH ×2 (08:27→19:49)
[2023-04-13] MEDS: atorvastatin 10mg tablet PO SCH (08:27)
[2023-04-13] MEDS: cyanocobalamin 500mcg tablet PO SCH (08:28)
[2023-04-13] MEDS: spironolactone 25 MG tablet PO SCH (08:28)
[2023-04-13] MEDS: fludrocortisone acetate 0.1mg tablet PO SCH (08:28)
[2023-04-13] MEDS: multivitamins, therapeutics tablet PO SCH (08:28)
[2023-04-13] MEDS: cholecalciferol (vitamin D3) 1,000 unit (25mcg) tablet PO SCH (08:28)
[2023-04-13] MEDS: fenofibrate 48mg tablet PO SCH (08:28)
[2023-04-13] MEDS: HYDROcodone/acetaminophen 10/325mg tab PO PRN ×2 (15:11→19:53)
[2023-04-13] MEDS: erythromycin ethylsuccinate 200mg/5ml 200ml bottle OGT SCH ×2 (16:18)
[2023-04-13] MEDS: NORepinephrine 8mg/ 250ml NS 250 ML IV PRN (17:06)
[2023-04-13] MEDS: ondansetron/PF 4mg/2ml inj IV PRN (17:14)
[2023-04-13] MEDS: docusate sod 100mg capsule PO SCH (19:49)
[2023-04-13] MEDS: aspirin 81mg, enteric-coated 1 TAB TABLET.DR PO SCH (19:49)
[2023-04-13] MEDS: insulin glargine (Lantus) pen - multi-dose SQ SCH (20:53)
[2023-04-14] VITALS (37 sets, daily range): BP systolic 77–106; BP diastolic 45–70; PULSE 67–98; RESP 13–25; O2SAT 91–100
[2023-04-14] MEDS: hydrocortisone sod succ/PF 100mg/2ml inj. IV SCH ×3 (00:09→16:22)
[2023-04-14] MEDS: heparin, porcine 5000 units/ml vial SQ SCH ×3 (00:09→16:23)
[2023-04-14] MEDS: erythromycin ethylsuccinate 200mg/5ml 200ml bottle OGT SCH (00:09)
[2023-04-14] MEDS: HYDROcodone/acetaminophen 10/325mg tab PO PRN ×2 (01:19→14:12)
[2023-04-14] MEDS: amiodarone/D5 360MG/200ML BAG 200 ML IV SCH ×2 (01:45→04:17)
[2023-04-14] MEDS: metoclopramide 5 mg/ml inj IV SCH (02:13)
[2023-04-14 02:51] LABS: BASOPHILS % (AUTO) 0 % (0-1); EOSINOPHILS % (AUTO) 0 % (0-6); HEMATOCRIT 33.7 % (42.0-52.0); HEMOGLOBIN 10.6 g/dl (14.0-17.9); LYMPHOCYTES # (AUTO) 0.8 X10'3 (1.1-4.8); LYMPHOCYTES % (AUTO) 6.7 % (21-51); MEAN CORPUSCULAR HEMOGLOBIN 26.6 PG (27.0-31.0); MEAN CORPUSCULAR HGB CONC 31.4 g/dL (33.0-36.5); MEAN CORPUSCULAR VOLUME 84.7 FL (78-98); MEAN PLATELET VOLUME 8.2 FL (7.4-10.4); MONOCYTES # (AUTO) 0.6 X10'3 (0-0.9); MONOCYTES % (AUTO) 5.2 % (2-12); NEUTROPHILS # (AUTO) 10.3 X10'3 (1.8-7.7); NEUTROPHILS % (AUTO) 88.1 % (42-75); PLATELET COUNT 257 X10'3 (140-440); RED BLOOD COUNT 3.98 X10'6 (4.70-6.10); RED CELL DISTRIBUTION WIDTH 18.2 % (11.5-14.5); WHITE BLOOD COUNT 11.7 X10'3 (4.5-11.0)
[2023-04-14 02:58] LABS: APTT 31 SECONDS (22-32); INR 1.3 INR; PROTHROMBIN TIME 13.4 SECONDS (9.0-12.0)
[2023-04-14 03:05] LABS: ALANINE AMINOTRANSFERASE 62 U/L (12-78); ALBUMIN 2.1 G/DL (3.4-5.0); ALBUMIN/GLOBULIN RATIO 0.5 (1.1-1.5); ALKALINE PHOSPHATASE 64 IU/L (46-116); ANION GAP 5 (8-16); ASPARTATE AMINO TRANSFERASE 31 U/L (10-37); BILIRUBIN,TOTAL 0.9 MG/DL (0.1-1.0); BLOOD UREA NITROGEN 26 MG/DL (7-18); BUN/CREATININE RATIO 37.7 (10.0-20.0); CALCIUM 7.8 MG/DL (8.5-10.1); CHLORIDE 98 MMOL/L (99-107); CREATININE 0.69 MG/DL (0.60-1.10); GLUCOSE 175 MG/DL (70-104); MAGNESIUM 1.8 MG/DL (1.5-2.4); PHOSPHORUS 3.2 MG/DL (2.3-4.5); POTASSIUM 3.7 MMOL/L (3.5-5.1); SODIUM 134 MMOL/L (135-145); TOTAL CARBON DIOXIDE 30.8 MMOL/L (24-32); eCRCL 88 ML/MIN; eGFR > 90 ML/MIN
[2023-04-14] MEDS: ipratropium/albuterol 3ml nebule IH SCH ×6 (03:26→22:43)
[2023-04-14] MEDS: NORepinephrine 8mg/ 250ml NS 250 ML IV PRN (04:18)
[2023-04-14] MEDS: DOBUTamine-DoBUTrex 500mg/D5W 250 ML IV SCH (04:18)
[2023-04-14] MEDS ORDERED: gabapentin 100mg capsule PO ONE (05:25)
[2023-04-14] MEDS: budesonide 0.5mg/2ml UD nebule IH SCH ×2 (07:36→19:55)
[2023-04-14] MEDS: furosemide 40mg/4ml inj IV SCH ×2 (07:46→19:48)
[2023-04-14] MEDS ORDERED: furosemide 20MG tablet PO SCH (08:00)
[2023-04-14] MEDS: lisinopril 2.5mg tablet PO SCH (08:00)
[2023-04-14] MEDS: docusate sod 100mg capsule PO SCH ×2 (08:00→19:31)
[2023-04-14] MEDS ORDERED: CefTRIAXone/D5W-Rocephin 1gm 50 ML IV SCH (08:00)
[2023-04-14] MEDS: carVEDilol 3.125mg tablet PO SCH (08:00)
[2023-04-14] MEDS: spironolactone 25 MG tablet PO SCH (08:01)
[2023-04-14] MEDS: amiodarone 200mg tablet PO SCH ×2 (08:01→19:49)
[2023-04-14] MEDS: EMPAGLIFLOZIN 10 MG TABLET PO SCH (08:02)
[2023-04-14] MEDS: atorvastatin 10mg tablet PO SCH (08:02)
[2023-04-14] MEDS: cyanocobalamin 500mcg tablet PO SCH (08:03)
[2023-04-14] MEDS: multivitamins, therapeutics tablet PO SCH (08:03)
[2023-04-14] MEDS: cholecalciferol (vitamin D3) 1,000 unit (25mcg) tablet PO SCH (08:03)
[2023-04-14] MEDS: fenofibrate 48mg tablet PO SCH (08:04)
[2023-04-14] MEDS: insulin regular, human U-100 3ml vial - multi-dose SQ SCH ×2 (08:21→13:52)
[2023-04-14] MEDS: famotidine 20mg tablet PO SCH ×2 (09:42→19:49)
[2023-04-14] MEDS ORDERED: levoFLOXACIN 500mg tablet PO SCH (11:00)
[2023-04-14] MEDS ORDERED: DOBUTamine-DoBUTrex 500mg/D5W 250 ML IV SCH (12:05)
[2023-04-14] MEDS: linezolid 600mg/300ml PREMIX 300 ML IV SCH ×2 (13:07→19:49)
[2023-04-14] MEDS ORDERED: insulin Lispro (HumaLOG) vial - multi-dose SQ SCH (14:27)
[2023-04-14] MEDS: aspirin 81mg, enteric-coated 1 TAB TABLET.DR PO SCH (19:49)
[2023-04-15] VITALS (32 sets, daily range): BP systolic 72–96; BP diastolic 47–64; PULSE 61–74; RESP 12–21; O2SAT 73–100
[2023-04-15] MEDS: heparin, porcine 5000 units/ml vial SQ SCH ×3 (00:04→17:02)
[2023-04-15] MEDS: hydrocortisone sod succ/PF 100mg/2ml inj. IV SCH ×2 (00:04→08:11)
[2023-04-15] MEDS: ipratropium/albuterol 3ml nebule IH SCH ×2 (03:06→07:30)
[2023-04-15 05:57] LABS: BASOPHILS % (AUTO) 0 % (0-1); EOSINOPHILS % (AUTO) 0 % (0-6); HEMATOCRIT 34.8 % (42.0-52.0); HEMOGLOBIN 11.2 g/dl (14.0-17.9); LYMPHOCYTES # (AUTO) 0.5 X10'3 (1.1-4.8); LYMPHOCYTES % (AUTO) 5.1 % (21-51); MEAN CORPUSCULAR HEMOGLOBIN 26.9 PG (27.0-31.0); MEAN CORPUSCULAR HGB CONC 32.1 g/dL (33.0-36.5); MEAN PLATELET VOLUME 8.3 FL (7.4-10.4); MONOCYTES # (AUTO) 0.6 X10'3 (0-0.9); MONOCYTES % (AUTO) 6.6 % (2-12); NEUTROPHILS # (AUTO) 8.4 X10'3 (1.8-7.7); NEUTROPHILS % (AUTO) 88.3 % (42-75); PLATELET COUNT 281 X10'3 (140-440); RED BLOOD COUNT 4.14 X10'6 (4.70-6.10); RED CELL DISTRIBUTION WIDTH 18.1 % (11.5-14.5); WHITE BLOOD COUNT 9.6 X10'3 (4.5-11.0)
[2023-04-15 06:06] LABS: APTT 31 SECONDS (22-32); INR 1.2 INR; PROTHROMBIN TIME 13.2 SECONDS (9.0-12.0)
[2023-04-15 06:29] LABS: ALANINE AMINOTRANSFERASE 68 U/L (12-78); ALBUMIN 2.3 G/DL (3.4-5.0); ALBUMIN/GLOBULIN RATIO 0.6 (1.1-1.5); ALKALINE PHOSPHATASE 66 IU/L (46-116); ANION GAP 5 (8-16); ASPARTATE AMINO TRANSFERASE 26 U/L (10-37); BILIRUBIN,TOTAL 0.8 MG/DL (0.1-1.0); BLOOD UREA NITROGEN 35 MG/DL (7-18); CALCIUM 8.1 MG/DL (8.5-10.1); CHLORIDE 99 MMOL/L (99-107); CREATININE 0.66 MG/DL (0.60-1.10); GLUCOSE 76 MG/DL (70-104); MAGNESIUM 1.8 MG/DL (1.5-2.4); PHOSPHORUS 4.7 MG/DL (2.3-4.5); POTASSIUM 4.2 MMOL/L (3.5-5.1); PRO BRAIN NATRIURETIC PEPTIDE 23672 PG/ML (0-450); SODIUM 133 MMOL/L (135-145); eCRCL 92 ML/MIN; eGFR > 90 ML/MIN
[2023-04-15] MEDS: lisinopril 2.5mg tablet PO SCH (07:14)
[2023-04-15] MEDS: budesonide 0.5mg/2ml UD nebule IH SCH ×2 (07:30→20:20)
[2023-04-15] MEDS: docusate sod 100mg capsule PO SCH ×2 (08:00→19:56)
[2023-04-15] MEDS: spironolactone 25 MG tablet PO SCH (08:11)
[2023-04-15] MEDS: cholecalciferol (vitamin D3) 1,000 unit (25mcg) tablet PO SCH (08:11)
[2023-04-15] MEDS: atorvastatin 10mg tablet PO SCH (08:11)
[2023-04-15] MEDS: EMPAGLIFLOZIN 10 MG TABLET PO SCH (08:12)
[2023-04-15] MEDS: amiodarone 200mg tablet PO SCH ×2 (08:12→20:00)
[2023-04-15] MEDS: cyanocobalamin 500mcg tablet PO SCH (08:12)
[2023-04-15] MEDS: fenofibrate 48mg tablet PO SCH (08:12)
[2023-04-15] MEDS: multivitamins, therapeutics tablet PO SCH (08:12)
[2023-04-15] MEDS: furosemide 40mg/4ml inj IV SCH ×2 (08:13→20:00)
[2023-04-15] MEDS: famotidine 20mg tablet PO SCH ×2 (08:13→20:01)
[2023-04-15] MEDS: midodrine 5mg tablet PO SCH ×2 (08:13→12:50)
[2023-04-15] MEDS: CefTRIAXone/D5W-Rocephin 1gm 50 ML IV SCH (08:13)
[2023-04-15] MEDS: linezolid 600mg/300ml PREMIX 300 ML IV SCH (08:58)
[2023-04-15] MEDS: aspirin 81mg, enteric-coated 1 TAB TABLET.DR PO SCH (20:01)
[2023-04-15] MEDS: linezolid 600mg tablet PO SCH (20:01)
[2023-04-15] MEDS: ipratropium/albuterol 3ml nebule NEB PRN (20:20)
[2023-04-16] VITALS (22 sets, daily range): BP systolic 77–98; BP diastolic 42–74; PULSE 63–80; RESP 12–22; TEMP 97.8–97.9; O2SAT 90–100
[2023-04-16] MEDS: heparin, porcine 5000 units/ml vial SQ SCH ×3 (00:07→16:08)
[2023-04-16] MEDS: HYDROcodone/acetaminophen 10/325mg tab PO PRN (03:05)
[2023-04-16] MEDS: ondansetron/PF 4mg/2ml inj IV PRN (03:51)
[2023-04-16 06:18] LABS: BASOPHILS % (AUTO) 0.5 % (0-1); EOSINOPHILS % (AUTO) 0 % (0-6); HEMATOCRIT 34.4 % (42.0-52.0); LYMPHOCYTES # (AUTO) 0.7 X10'3 (1.1-4.8); LYMPHOCYTES % (AUTO) 12.5 % (21-51); MEAN CORPUSCULAR HEMOGLOBIN 26.9 PG (27.0-31.0); MEAN CORPUSCULAR HGB CONC 31.9 g/dL (33.0-36.5); MEAN CORPUSCULAR VOLUME 84.4 FL (78-98); MEAN PLATELET VOLUME 8.5 FL (7.4-10.4); MONOCYTES # (AUTO) 0.3 X10'3 (0-0.9); MONOCYTES % (AUTO) 6.3 % (2-12); NEUTROPHILS # (AUTO) 4.4 X10'3 (1.8-7.7); NEUTROPHILS % (AUTO) 80.7 % (42-75); PLATELET COUNT 255 X10'3 (140-440); RED BLOOD COUNT 4.07 X10'6 (4.70-6.10); RED CELL DISTRIBUTION WIDTH 18.2 % (11.5-14.5); WHITE BLOOD COUNT 5.4 X10'3 (4.5-11.0)
[2023-04-16 06:31] LABS: APTT 28 SECONDS (22-32); INR 1.3 INR; PROTHROMBIN TIME 13.7 SECONDS (9.0-12.0)
[2023-04-16 06:57] LABS: ALANINE AMINOTRANSFERASE 53 U/L (12-78); ALBUMIN 2.3 G/DL (3.4-5.0); ALBUMIN/GLOBULIN RATIO 0.6 (1.1-1.5); ALKALINE PHOSPHATASE 66 IU/L (46-116); ANION GAP 9 (8-16); ASPARTATE AMINO TRANSFERASE 24 U/L (10-37); BILIRUBIN,DIRECT 0.7 MG/DL (0-0.3); BLOOD UREA NITROGEN 39 MG/DL (7-18); BUN/CREATININE RATIO 46.4 (10.0-20.0); CALCIUM 7.8 MG/DL (8.5-10.1); CHLORIDE 97 MMOL/L (99-107); CREATININE 0.84 MG/DL (0.60-1.10); FREE T4 (FREE THYROXINE) 1.06 NG/DL (0.73-1.40); GLUCOSE 144 MG/DL (70-104); MAGNESIUM 1.7 MG/DL (1.5-2.4); PHOSPHORUS 4.8 MG/DL (2.3-4.5); POTASSIUM 3.9 MMOL/L (3.5-5.1); SODIUM 133 MMOL/L (135-145); THYROID STIMULATING HORMONE 1.93 ulU/ml (0.34-4.50); TOTAL CARBON DIOXIDE 26.8 MMOL/L (24-32); TOTAL PROTEIN 6.2 G/DL (6.4-8.2); eCRCL 72 ML/MIN; eGFR 89 ML/MIN
[2023-04-16] MEDS: CefTRIAXone/D5W-Rocephin 1gm 50 ML IV SCH (07:36)
[2023-04-16] MEDS: EMPAGLIFLOZIN 10 MG TABLET PO SCH (07:37)
[2023-04-16] MEDS: cholecalciferol (vitamin D3) 1,000 unit (25mcg) tablet PO SCH (07:37)
[2023-04-16] MEDS: multivitamins, therapeutics tablet PO SCH (07:37)
[2023-04-16] MEDS: furosemide 40mg/4ml inj IV SCH ×2 (07:37→20:23)
[2023-04-16] MEDS: atorvastatin 10mg tablet PO SCH (07:37)
[2023-04-16] MEDS: cyanocobalamin 500mcg tablet PO SCH (07:37)
[2023-04-16] MEDS: fenofibrate 48mg tablet PO SCH (07:37)
[2023-04-16] MEDS: amiodarone 200mg tablet PO SCH ×2 (07:37→20:23)
[2023-04-16] MEDS: budesonide 0.5mg/2ml UD nebule IH SCH ×2 (07:42→20:00)
[2023-04-16] MEDS: ipratropium/albuterol 3ml nebule NEB PRN (07:42)
[2023-04-16] MEDS: docusate sod 100mg capsule PO SCH ×2 (08:00→20:23)
[2023-04-16] MEDS: famotidine 20mg tablet PO SCH ×2 (08:13→22:32)
[2023-04-16] MEDS: linezolid 600mg tablet PO SCH ×2 (08:21→20:23)
[2023-04-16] MEDS: DOBUTamine-DoBUTrex 500mg/D5W 250 ML IV SCH ×2 (08:58→10:01)
[2023-04-16] MEDS: aspirin 81mg, enteric-coated 1 TAB TABLET.DR PO SCH (20:23)
[2023-04-17] VITALS (10 sets, daily range): BP systolic 98–107; BP diastolic 63–72; PULSE 57–79; RESP 10–24; TEMP 97.6–98.4; O2SAT 94–100
[2023-04-17] MEDS: heparin, porcine 5000 units/ml vial SQ SCH ×4 (00:06→23:28)
[2023-04-17 07:19] LABS: BASOPHILS % (AUTO) 0.5 % (0-1); EOSINOPHILS % (AUTO) 0.6 % (0-6); HEMOGLOBIN 11.7 g/dl (14.0-17.9); LYMPHOCYTES # (AUTO) 0.9 X10'3 (1.1-4.8); MEAN CORPUSCULAR HEMOGLOBIN 27.2 PG (27.0-31.0); MEAN CORPUSCULAR HGB CONC 31.7 g/dL (33.0-36.5); MEAN CORPUSCULAR VOLUME 85.7 FL (78-98); MEAN PLATELET VOLUME 8.1 FL (7.4-10.4); MONOCYTES # (AUTO) 0.5 X10'3 (0-0.9); MONOCYTES % (AUTO) 8.8 % (2-12); NEUTROPHILS # (AUTO) 4.1 X10'3 (1.8-7.7); NEUTROPHILS % (AUTO) 73.1 % (42-75); PLATELET COUNT 244 X10'3 (140-440); RED BLOOD COUNT 4.32 X10'6 (4.70-6.10); RED CELL DISTRIBUTION WIDTH 18.8 % (11.5-14.5); WHITE BLOOD COUNT 5.6 X10'3 (4.5-11.0)
[2023-04-17 07:39] LABS: ALANINE AMINOTRANSFERASE 48 U/L (12-78); ALBUMIN 2.3 G/DL (3.4-5.0); ALBUMIN/GLOBULIN RATIO 0.7 (1.1-1.5); ALKALINE PHOSPHATASE 62 IU/L (46-116); ANION GAP 8 (8-16); ASPARTATE AMINO TRANSFERASE 25 U/L (10-37); BILIRUBIN,TOTAL 1.2 MG/DL (0.1-1.0); BLOOD UREA NITROGEN 41 MG/DL (7-18); BUN/CREATININE RATIO 49.4 (10.0-20.0); CALCIUM 7.8 MG/DL (8.5-10.1); CHLORIDE 97 MMOL/L (99-107); CREATININE 0.83 MG/DL (0.60-1.10); GLUCOSE 131 MG/DL (70-104); MAGNESIUM 1.9 MG/DL (1.5-2.4); POTASSIUM 3.8 MMOL/L (3.5-5.1); SODIUM 133 MMOL/L (135-145); TOTAL CARBON DIOXIDE 27.8 MMOL/L (24-32); TOTAL PROTEIN 5.8 G/DL (6.4-8.2); eCRCL 73 ML/MIN; eGFR 90 ML/MIN
[2023-04-17] MEDS: budesonide 0.5mg/2ml UD nebule IH SCH ×2 (07:43→23:12)
[2023-04-17] MEDS: ipratropium/albuterol 3ml nebule NEB PRN ×2 (07:43→23:12)
[2023-04-17] MEDS: famotidine 20mg tablet PO SCH ×2 (08:00→20:01)
[2023-04-17] MEDS: docusate sod 100mg capsule PO SCH ×2 (08:00→20:00)
[2023-04-17] MEDS: cholecalciferol (vitamin D3) 1,000 unit (25mcg) tablet PO SCH (08:04)
[2023-04-17] MEDS: multivitamins, therapeutics tablet PO SCH (08:05)
[2023-04-17] MEDS: linezolid 600mg tablet PO SCH ×2 (08:05→20:01)
[2023-04-17] MEDS: amiodarone 200mg tablet PO SCH ×2 (08:06→20:02)
[2023-04-17] MEDS: cyanocobalamin 500mcg tablet PO SCH (08:07)
[2023-04-17] MEDS: atorvastatin 10mg tablet PO SCH (08:07)
[2023-04-17] MEDS: furosemide 40mg/4ml inj IV SCH ×2 (08:08→22:42)
[2023-04-17] MEDS: HYDROcodone/acetaminophen 10/325mg tab PO PRN ×2 (08:10→12:07)
[2023-04-17 08:12] LABS: APTT 30 SECONDS (22-32); INR 1.3 INR; PROTHROMBIN TIME 13.4 SECONDS (9.0-12.0)
[2023-04-17] MEDS: fenofibrate 48mg tablet PO SCH (12:04)
[2023-04-17] MEDS: EMPAGLIFLOZIN 10 MG TABLET PO SCH (12:04)
[2023-04-17] MEDS: aspirin 81mg, enteric-coated 1 TAB TABLET.DR PO SCH (20:01)
[2023-04-18] VITALS (12 sets, daily range): BP systolic 89–121; BP diastolic 56–77; PULSE 65–86; RESP 14–20; TEMP 97–98.1; O2SAT 91–100
[2023-04-18] MEDS: DOBUTamine-DoBUTrex 500mg/D5W 250 ML IV SCH (04:01)
[2023-04-18] MEDS: budesonide 0.5mg/2ml UD nebule IH SCH ×2 (07:49→19:46)
[2023-04-18] MEDS: ipratropium/albuterol 3ml nebule NEB PRN ×2 (07:50→19:46)
[2023-04-18] MEDS: heparin, porcine 5000 units/ml vial SQ SCH ×2 (08:00→17:08)
[2023-04-18] MEDS: famotidine 20mg tablet PO SCH ×2 (08:00→20:31)
[2023-04-18] MEDS: linezolid 600mg tablet PO SCH ×2 (09:49→20:31)
[2023-04-18] MEDS: atorvastatin 10mg tablet PO SCH (09:49)
[2023-04-18] MEDS: docusate sod 100mg capsule PO SCH ×2 (09:49→19:22)
[2023-04-18] MEDS: cyanocobalamin 500mcg tablet PO SCH (09:49)
[2023-04-18] MEDS: cholecalciferol (vitamin D3) 1,000 unit (25mcg) tablet PO SCH (09:50)
[2023-04-18] MEDS: fenofibrate 48mg tablet PO SCH (09:51)
[2023-04-18] MEDS: EMPAGLIFLOZIN 10 MG TABLET PO SCH (09:51)
[2023-04-18] MEDS: amiodarone 200mg tablet PO SCH ×2 (09:51→20:31)
[2023-04-18] MEDS: multivitamins, therapeutics tablet PO SCH (09:51)
[2023-04-18] MEDS: furosemide 40mg/4ml inj IV SCH ×2 (09:52→20:00)
[2023-04-18 10:16] LABS: BASOPHILS % (AUTO) 0.5 % (0-1); EOSINOPHILS % (AUTO) 0.4 % (0-6); HEMATOCRIT 37.8 % (42.0-52.0); HEMOGLOBIN 12.1 g/dl (14.0-17.9); LYMPHOCYTES # (AUTO) 0.8 X10'3 (1.1-4.8); LYMPHOCYTES % (AUTO) 9.6 % (21-51); MEAN CORPUSCULAR HGB CONC 31.9 g/dL (33.0-36.5); MEAN CORPUSCULAR VOLUME 84.6 FL (78-98); MEAN PLATELET VOLUME 7.5 FL (7.4-10.4); MONOCYTES # (AUTO) 0.5 X10'3 (0-0.9); MONOCYTES % (AUTO) 6.2 % (2-12); NEUTROPHILS # (AUTO) 6.5 X10'3 (1.8-7.7); NEUTROPHILS % (AUTO) 83.3 % (42-75); PLATELET COUNT 318 X10'3 (140-440); RED BLOOD COUNT 4.46 X10'6 (4.70-6.10); RED CELL DISTRIBUTION WIDTH 18.5 % (11.5-14.5); WHITE BLOOD COUNT 7.9 X10'3 (4.5-11.0)
[2023-04-18 11:15] LABS: ALANINE AMINOTRANSFERASE 44 U/L (12-78); ALBUMIN 2.5 G/DL (3.4-5.0); ALBUMIN/GLOBULIN RATIO 0.7 (1.1-1.5); ALKALINE PHOSPHATASE 63 IU/L (46-116); ANION GAP 5 (8-16); ASPARTATE AMINO TRANSFERASE 23 U/L (10-37); BILIRUBIN,TOTAL 1.6 MG/DL (0.1-1.0); BLOOD UREA NITROGEN 31 MG/DL (7-18); BUN/CREATININE RATIO 40.8 (10.0-20.0); CHLORIDE 97 MMOL/L (99-107); CREATININE 0.76 MG/DL (0.60-1.10); GLUCOSE 124 MG/DL (70-104); POTASSIUM 3.3 MMOL/L (3.5-5.1); SODIUM 136 MMOL/L (135-145); TOTAL CARBON DIOXIDE 33.7 MMOL/L (24-32); TOTAL PROTEIN 6.3 G/DL (6.4-8.2); eCRCL 80 ML/MIN; eGFR > 90 ML/MIN
[2023-04-18] MEDS ORDERED: ondansetron 4mg rapidly disintigrating tab PO PRN (11:40)
[2023-04-18] MEDS: sacubitril/valsartan 24mg-26mg tablet PO SCH (20:00)
[2023-04-18] MEDS: aspirin 81mg, enteric-coated 1 TAB TABLET.DR PO SCH (20:31)
[2023-04-18] MEDS: potassium Cl 20 mEq SR tablet PO PRN (20:32)
[2023-04-19] VITALS (11 sets, daily range): BP systolic 90–108; BP diastolic 51–72; PULSE 67–80; RESP 14–20; TEMP 97.3–98; O2SAT 89–99
[2023-04-19] MEDS: heparin, porcine 5000 units/ml vial SQ SCH ×3 (01:08→15:55)
[2023-04-19] MEDS: potassium Cl 20 mEq SR tablet PO PRN (01:09)
[2023-04-19] MEDS: linezolid 600mg tablet PO SCH ×2 (07:45→21:24)
[2023-04-19] MEDS: amiodarone 200mg tablet PO SCH ×2 (07:45→21:24)
[2023-04-19] MEDS: multivitamins, therapeutics tablet PO SCH (07:45)
[2023-04-19] MEDS: cholecalciferol (vitamin D3) 1,000 unit (25mcg) tablet PO SCH (07:45)
[2023-04-19] MEDS: famotidine 20mg tablet PO SCH ×2 (07:46→21:24)
[2023-04-19] MEDS: EMPAGLIFLOZIN 10 MG TABLET PO SCH (07:46)
[2023-04-19] MEDS: sacubitril/valsartan 24mg-26mg tablet PO SCH ×2 (07:46→20:00)
[2023-04-19] MEDS: docusate sod 100mg capsule PO SCH ×2 (07:47→20:00)
[2023-04-19] MEDS: furosemide 40mg/4ml inj IV SCH ×2 (07:47→20:00)
[2023-04-19] MEDS: cyanocobalamin 500mcg tablet PO SCH (07:47)
[2023-04-19] MEDS: atorvastatin 10mg tablet PO SCH (07:57)
[2023-04-19] MEDS: budesonide 0.5mg/2ml UD nebule IH SCH ×2 (09:14→20:07)
[2023-04-19] MEDS: ipratropium/albuterol 3ml nebule NEB PRN ×2 (09:14→20:07)
[2023-04-19 10:22] LABS: BASOPHILS % (AUTO) 0.2 % (0-1); EOSINOPHILS % (AUTO) 0.6 % (0-6); HEMATOCRIT 40.9 % (42.0-52.0); LYMPHOCYTES # (AUTO) 0.9 X10'3 (1.1-4.8); LYMPHOCYTES % (AUTO) 11.3 % (21-51); MEAN CORPUSCULAR HEMOGLOBIN 27.3 PG (27.0-31.0); MEAN CORPUSCULAR HGB CONC 31.9 g/dL (33.0-36.5); MEAN CORPUSCULAR VOLUME 85.7 FL (78-98); MEAN PLATELET VOLUME 7.7 FL (7.4-10.4); MONOCYTES # (AUTO) 0.3 X10'3 (0-0.9); MONOCYTES % (AUTO) 4.1 % (2-12); NEUTROPHILS # (AUTO) 6.6 X10'3 (1.8-7.7); NEUTROPHILS % (AUTO) 83.8 % (42-75); PLATELET COUNT 295 X10'3 (140-440); RED BLOOD COUNT 4.77 X10'6 (4.70-6.10); RED CELL DISTRIBUTION WIDTH 18.4 % (11.5-14.5); WHITE BLOOD COUNT 7.8 X10'3 (4.5-11.0)
[2023-04-19 10:38] LABS: ALANINE AMINOTRANSFERASE 44 U/L (12-78); ALBUMIN 2.7 G/DL (3.4-5.0); ALBUMIN/GLOBULIN RATIO 0.7 (1.1-1.5); ALKALINE PHOSPHATASE 68 IU/L (46-116); ANION GAP 8 (8-16); ASPARTATE AMINO TRANSFERASE 27 U/L (10-37); BILIRUBIN,TOTAL 1.8 MG/DL (0.1-1.0); BLOOD UREA NITROGEN 30 MG/DL (7-18); BUN/CREATININE RATIO 44.1 (10.0-20.0); CALCIUM 8.6 MG/DL (8.5-10.1); CHLORIDE 97 MMOL/L (99-107); CREATININE 0.68 MG/DL (0.60-1.10); GLUCOSE 141 MG/DL (70-104); POTASSIUM 3.6 MMOL/L (3.5-5.1); SODIUM 137 MMOL/L (135-145); TOTAL CARBON DIOXIDE 32.5 MMOL/L (24-32); TOTAL PROTEIN 6.5 G/DL (6.4-8.2); eCRCL 89 ML/MIN; eGFR > 90 ML/MIN
[2023-04-19] MEDS: fenofibrate 48mg tablet PO SCH (13:17)
[2023-04-19] MEDS: aspirin 81mg, enteric-coated 1 TAB TABLET.DR PO SCH (21:24)
[2023-04-20] VITALS (11 sets, daily range): BP systolic 86–97; BP diastolic 45–61; PULSE 65–97; RESP 16–20; TEMP 97.1–97.8; O2SAT 89–97
[2023-04-20] MEDS: DOBUTamine-DoBUTrex 500mg/D5W 250 ML IV SCH (00:47)
[2023-04-20] MEDS: famotidine 20mg tablet PO SCH ×2 (08:00→20:53)
[2023-04-20] MEDS: docusate sod 100mg capsule PO SCH ×2 (08:00→20:53)
[2023-04-20] MEDS: cholecalciferol (vitamin D3) 1,000 unit (25mcg) tablet PO SCH (08:30)
[2023-04-20] MEDS: fenofibrate 48mg tablet PO SCH (08:30)
[2023-04-20] MEDS: cyanocobalamin 500mcg tablet PO SCH (08:30)
[2023-04-20] MEDS: amiodarone 200mg tablet PO SCH ×2 (08:30→20:56)
[2023-04-20] MEDS: linezolid 600mg tablet PO SCH ×2 (08:31→20:53)
[2023-04-20] MEDS: atorvastatin 10mg tablet PO SCH (08:31)
[2023-04-20] MEDS: multivitamins, therapeutics tablet PO SCH (08:31)
[2023-04-20] MEDS: EMPAGLIFLOZIN 10 MG TABLET PO SCH (08:31)
[2023-04-20] MEDS: furosemide 40mg/4ml inj IV SCH ×2 (08:31→20:00)
[2023-04-20] MEDS: heparin, porcine 5000 units/ml vial SQ SCH ×3 (08:32→18:01)
[2023-04-20] MEDS: sacubitril/valsartan 24mg-26mg tablet PO SCH ×2 (08:35→20:00)
[2023-04-20] MEDS: ipratropium/albuterol 3ml nebule NEB PRN ×2 (09:04→20:15)
[2023-04-20] MEDS: budesonide 0.5mg/2ml UD nebule IH SCH ×2 (09:04→20:15)
[2023-04-20 11:21] LABS: BASOPHILS % (AUTO) 0.3 % (0-1); EOSINOPHILS # (AUTO) 0.1 X10'3 (0-0.9); EOSINOPHILS % (AUTO) 0.9 % (0-6); HEMATOCRIT 40.7 % (42.0-52.0); HEMOGLOBIN 12.9 g/dl (14.0-17.9); LYMPHOCYTES % (AUTO) 15.1 % (21-51); MEAN CORPUSCULAR HEMOGLOBIN 27.3 PG (27.0-31.0); MEAN CORPUSCULAR HGB CONC 31.6 g/dL (33.0-36.5); MEAN CORPUSCULAR VOLUME 86.3 FL (78-98); MEAN PLATELET VOLUME 7.2 FL (7.4-10.4); MONOCYTES # (AUTO) 0.4 X10'3 (0-0.9); NEUTROPHILS # (AUTO) 5.3 X10'3 (1.8-7.7); NEUTROPHILS % (AUTO) 77.7 % (42-75); PLATELET COUNT 303 X10'3 (140-440); RED BLOOD COUNT 4.71 X10'6 (4.70-6.10); RED CELL DISTRIBUTION WIDTH 18.7 % (11.5-14.5); WHITE BLOOD COUNT 6.9 X10'3 (4.5-11.0)
[2023-04-20 11:43] LABS: ALANINE AMINOTRANSFERASE 38 U/L (12-78); ALBUMIN 2.7 G/DL (3.4-5.0); ALBUMIN/GLOBULIN RATIO 0.8 (1.1-1.5); ALKALINE PHOSPHATASE 64 IU/L (46-116); ANION GAP 5 (8-16); ASPARTATE AMINO TRANSFERASE 30 U/L (10-37); BILIRUBIN,TOTAL 2.1 MG/DL (0.1-1.0); BLOOD UREA NITROGEN 26 MG/DL (7-18); BUN/CREATININE RATIO 38.2 (10.0-20.0); CALCIUM 8.5 MG/DL (8.5-10.1); CHLORIDE 100 MMOL/L (99-107); CREATININE 0.68 MG/DL (0.60-1.10); GLUCOSE 130 MG/DL (70-104); POTASSIUM 3.4 MMOL/L (3.5-5.1); SODIUM 141 MMOL/L (135-145); TOTAL CARBON DIOXIDE 36.1 MMOL/L (24-32); TOTAL PROTEIN 6.3 G/DL (6.4-8.2); eCRCL 89 ML/MIN; eGFR > 90 ML/MIN
[2023-04-20 13:50] LABS: ANISOCYTOSIS 2+; BURR CELLS 1+; ELLIPTOCYTES 1+; PLATELET ESTIMATE NORMAL
[2023-04-20 13:51] LABS: SCHISTOCYTES FEW
[2023-04-20] MEDS: potassium Cl 20 mEq SR tablet PO PRN (18:02)
[2023-04-20] MEDS: aspirin 81mg, enteric-coated 1 TAB TABLET.DR PO SCH (20:53)
[2023-04-21] VITALS (10 sets, daily range): BP systolic 80–110; BP diastolic 39–80; PULSE 66–80; RESP 15–20; TEMP 97.4–98.9; O2SAT 90–100
[2023-04-21] MEDS: heparin, porcine 5000 units/ml vial SQ SCH ×3 (00:45→17:08)
[2023-04-21] MEDS: HYDROcodone/acetaminophen 10/325mg tab PO PRN (00:52)
[2023-04-21] MEDS: potassium Cl 20 mEq SR tablet PO PRN (07:30)
[2023-04-21] MEDS: cholecalciferol (vitamin D3) 1,000 unit (25mcg) tablet PO SCH (07:30)
[2023-04-21] MEDS: atorvastatin 10mg tablet PO SCH (07:30)
[2023-04-21] MEDS: amiodarone 200mg tablet PO SCH ×2 (07:30→21:12)
[2023-04-21] MEDS: multivitamins, therapeutics tablet PO SCH (07:30)
[2023-04-21] MEDS: docusate sod 100mg capsule PO SCH ×2 (07:31→20:00)
[2023-04-21] MEDS: cyanocobalamin 500mcg tablet PO SCH (07:31)
[2023-04-21] MEDS: EMPAGLIFLOZIN 10 MG TABLET PO SCH (07:31)
[2023-04-21] MEDS: furosemide 40mg/4ml inj IV SCH ×2 (07:31→20:00)
[2023-04-21] MEDS: famotidine 20mg tablet PO SCH ×2 (07:31→21:14)
[2023-04-21] MEDS: linezolid 600mg tablet PO SCH ×2 (07:31→21:11)
[2023-04-21] MEDS: sacubitril/valsartan 24mg-26mg tablet PO SCH ×2 (07:33→20:00)
[2023-04-21] MEDS: fenofibrate 48mg tablet PO SCH (07:41)
[2023-04-21] MEDS: budesonide 0.5mg/2ml UD nebule IH SCH ×2 (09:45→20:11)
[2023-04-21] MEDS: ipratropium/albuterol 3ml nebule NEB PRN (20:12)
[2023-04-21] MEDS: aspirin 81mg, enteric-coated 1 TAB TABLET.DR PO SCH (21:11)
[2023-04-22] VITALS (9 sets, daily range): BP systolic 86–98; BP diastolic 47–57; PULSE 67–76; RESP 15–24; TEMP 97–98.3; O2SAT 91–97
[2023-04-22] MEDS: heparin, porcine 5000 units/ml vial SQ SCH ×3 (00:26→16:21)
[2023-04-22 07:33] LABS: ALANINE AMINOTRANSFERASE 34 U/L (12-78); ALBUMIN 2.7 G/DL (3.4-5.0); ALBUMIN/GLOBULIN RATIO 0.8 (1.1-1.5); ALKALINE PHOSPHATASE 61 IU/L (46-116); ANION GAP 6 (8-16); ASPARTATE AMINO TRANSFERASE 35 U/L (10-37); BILIRUBIN,TOTAL 1.4 MG/DL (0.1-1.0); BLOOD UREA NITROGEN 32 MG/DL (7-18); BUN/CREATININE RATIO 48.5 (10.0-20.0); CALCIUM 8.8 MG/DL (8.5-10.1); CHLORIDE 104 MMOL/L (99-107); CREATININE 0.66 MG/DL (0.60-1.10); GLUCOSE 116 MG/DL (70-104); SODIUM 142 MMOL/L (135-145); TOTAL CARBON DIOXIDE 31.6 MMOL/L (24-32); TOTAL PROTEIN 6.3 G/DL (6.4-8.2); eCRCL 92 ML/MIN; eGFR > 90 ML/MIN
[2023-04-22 07:39] LABS: POTASSIUM 4.2 MMOL/L (3.5-5.1)
[2023-04-22] MEDS: docusate sod 100mg capsule PO SCH ×2 (08:00→20:00)
[2023-04-22] MEDS: budesonide 0.5mg/2ml UD nebule IH SCH ×2 (08:35→20:00)
[2023-04-22] MEDS: ipratropium/albuterol 3ml nebule NEB PRN (08:35)
[2023-04-22] MEDS: famotidine 20mg tablet PO SCH ×2 (08:43→21:06)
[2023-04-22] MEDS: atorvastatin 10mg tablet PO SCH (08:43)
[2023-04-22] MEDS: cyanocobalamin 500mcg tablet PO SCH (08:43)
[2023-04-22] MEDS: sacubitril/valsartan 24mg-26mg tablet PO SCH ×2 (08:43→20:00)
[2023-04-22] MEDS: linezolid 600mg tablet PO SCH ×2 (08:44→21:06)
[2023-04-22] MEDS: cholecalciferol (vitamin D3) 1,000 unit (25mcg) tablet PO SCH (08:44)
[2023-04-22] MEDS: furosemide 40mg/4ml inj IV SCH ×2 (08:44→20:00)
[2023-04-22] MEDS: EMPAGLIFLOZIN 10 MG TABLET PO SCH (08:44)
[2023-04-22] MEDS: amiodarone 200mg tablet PO SCH ×2 (08:44→21:06)
[2023-04-22] MEDS: fenofibrate 48mg tablet PO SCH (08:44)
[2023-04-22] MEDS: multivitamins, therapeutics tablet PO SCH (08:57)
[2023-04-22] MEDS: aspirin 81mg, enteric-coated 1 TAB TABLET.DR PO SCH (21:06)
[2023-04-23] MEDS: heparin, porcine 5000 units/ml vial SQ SCH ×2 (00:15→08:52)
[2023-04-23 01:59] VITALS: BP 96/58; PULSE 71; RESP 16; TEMP 97.7; O2SAT 92
[2023-04-23 08:00] VITALS: RESP 26; O2SAT 98
[2023-04-23] MEDS: docusate sod 100mg capsule PO SCH (08:00)
[2023-04-23] MEDS: sacubitril/valsartan 24mg-26mg tablet PO SCH (08:44)
[2023-04-23] MEDS: fenofibrate 48mg tablet PO SCH (08:44)
[2023-04-23] MEDS: cholecalciferol (vitamin D3) 1,000 unit (25mcg) tablet PO SCH (08:45)
[2023-04-23] MEDS: multivitamins, therapeutics tablet PO SCH (08:45)
[2023-04-23] MEDS: EMPAGLIFLOZIN 10 MG TABLET PO SCH (08:46)
[2023-04-23] MEDS: linezolid 600mg tablet PO SCH (08:46)
[2023-04-23] MEDS: cyanocobalamin 500mcg tablet PO SCH (08:46)
[2023-04-23] MEDS: atorvastatin 10mg tablet PO SCH (08:46)
[2023-04-23] MEDS: famotidine 20mg tablet PO SCH (08:47)
[2023-04-23] MEDS: amiodarone 200mg tablet PO SCH (08:52)
[2023-04-23] MEDS: ipratropium/albuterol 3ml nebule NEB PRN (08:58)
[2023-04-23] MEDS: budesonide 0.5mg/2ml UD nebule IH SCH (08:58)
[2023-04-23 08:59] VITALS: PULSE 77; RESP 16; O2SAT 92
[2023-04-23 09:07] VITALS: PULSE 75; RESP 16
[2023-04-23] MEDS ORDERED: amiodarone 200mg tablet PO SCH (09:18)
[2023-04-23] MEDS ORDERED: amiodarone 100mg tablet PO SCH (09:24)
[2023-04-23 09:34] LABS: BASOPHILS % (AUTO) 0.5 % (0-1); EOSINOPHILS # (AUTO) 0.1 X10'3 (0-0.9); EOSINOPHILS % (AUTO) 1.6 % (0-6); HEMATOCRIT 38.2 % (42.0-52.0); HEMOGLOBIN 11.8 g/dl (14.0-17.9); LYMPHOCYTES # (AUTO) 1.2 X10'3 (1.1-4.8); LYMPHOCYTES % (AUTO) 14.6 % (21-51); MEAN CORPUSCULAR HEMOGLOBIN 27.3 PG (27.0-31.0); MEAN CORPUSCULAR HGB CONC 30.8 g/dL (33.0-36.5); MEAN CORPUSCULAR VOLUME 88.7 FL (78-98); MEAN PLATELET VOLUME 7.4 FL (7.4-10.4); MONOCYTES # (AUTO) 0.7 X10'3 (0-0.9); MONOCYTES % (AUTO) 8.3 % (2-12); NEUTROPHILS # (AUTO) 6.1 X10'3 (1.8-7.7); PLATELET COUNT 229 X10'3 (140-440); RED BLOOD COUNT 4.31 X10'6 (4.70-6.10); RED CELL DISTRIBUTION WIDTH 19.3 % (11.5-14.5); WHITE BLOOD COUNT 8.1 X10'3 (4.5-11.0)
[2023-04-23 09:35] LABS: ALANINE AMINOTRANSFERASE 33 U/L (12-78); ALBUMIN 2.5 G/DL (3.4-5.0); ALBUMIN/GLOBULIN RATIO 0.7 (1.1-1.5); ALKALINE PHOSPHATASE 59 IU/L (46-116); ANION GAP 6 (8-16); ASPARTATE AMINO TRANSFERASE 43 U/L (10-37); BILIRUBIN,TOTAL 1.7 MG/DL (0.1-1.0); BLOOD UREA NITROGEN 33 MG/DL (7-18); BUN/CREATININE RATIO 71.7 (10.0-20.0); CALCIUM 8.7 MG/DL (8.5-10.1); CHLORIDE 103 MMOL/L (99-107); CREATININE 0.46 MG/DL (0.60-1.10); GLUCOSE 125 MG/DL (70-104); POTASSIUM 4.2 MMOL/L (3.5-5.1); SODIUM 138 MMOL/L (135-145); TOTAL CARBON DIOXIDE 29.1 MMOL/L (24-32); TOTAL PROTEIN 5.9 G/DL (6.4-8.2); eCRCL 132 ML/MIN; eGFR > 90 ML/MIN
[2023-04-23] MEDS ORDERED: LINE600T14 PO (11:38)
[2023-04-23] MEDS ORDERED: AMIO100T PO (11:44)
[2023-04-23] MEDS ORDERED: SACU1TAB PO (11:44)
== END 2023-04-23 17:05 | disposition home health service (06) | DRG 871 ==
LOC: ER 19:02 → ED HOLD 20:59 → EDBEDREQ 21:19 → CICU 2S 23:58 → PCU 3S 04-16 12:16 → UNDODISIN 04-17 13:10
PROVIDERS: ADMIT Surgery; ATTEND Surgery
PROC: 5A1945Z Respiratory Ventilation, 24-96 Consecutive Hours (ICD-10-PCS; principal; 2023-04-09)
PROC: 0BH17EZ Insertion of Endotracheal Airway into Trachea, Via Natural or Artificial Opening (ICD-10-PCS; 2023-04-09)
DX: A41.1 Sepsis due to other specified staphylococcus (principal); I50.23 Acute on chronic systolic (congestive) heart failure; J96.21 Acute and chronic respiratory failure with hypoxia; R65.21 Severe sepsis with septic shock; J13 Pneumonia due to Streptococcus pneumoniae; J44.1 Chronic obstructive pulmonary disease with (acute) exacerbation; J44.0 Chronic obstructive pulmonary disease with (acute) lower respiratory infection; I42.9 Cardiomyopathy, unspecified; N39.0 Urinary tract infection, site not specified; E87.1 Hypo-osmolality and hyponatremia; E83.39 Other disorders of phosphorus metabolism; I11.0 Hypertensive heart disease with heart failure; I48.0 Paroxysmal atrial fibrillation; E78.00 Pure hypercholesterolemia, unspecified; Z96.651 Presence of right artificial knee joint; Z20.822 Contact with and (suspected) exposure to COVID-19; E87.6 Hypokalemia; Z96.612 Presence of left artificial shoulder joint; I87.2 Venous insufficiency (chronic) (peripheral); F32.A Depression, unspecified; R74.01 Elevation of levels of liver transaminase levels; I08.2 Rheumatic disorders of both aortic and tricuspid valves; E11.9 Type 2 diabetes mellitus without complications; I25.2 Old myocardial infarction; Z79.899 Other long term (current) drug therapy; Z88.1 Allergy status to other antibiotic agents; Z88.5 Allergy status to narcotic agent; Z79.82 Long term (current) use of aspirin
CPT/HCPCS: 36415; 36600; 71045; 80048; 80053; 80076; 80202; 81001; 82803; 82948; 83036; 83605; 83735; 83880; 84100; 84134; 84145; 84439; 84443; 84478; 84484; 85007; 85008; 85018; 85025; 85379; 85610; 85730; 87040; 87070; 87077; 87081; 87088; 87186; 87811; 93308; 94002; 94003; 94640; 94664; 94668; 94760; 97110; 97161; 97530; 97535; 99285; A4333; A4615; A4649; A5200; A6154; A6212; A6213; A6222; A6223; A6250; A6253; A6258; A6260; A6446; A6449; A7015; A9900; C1751; C1758; C9113; G0378; J0131; J0282; J0330; J0696; J1160; J1250; J1644; J1720; J1815; J1940; J2020; J2405; J2543; J2704; J2765; J3010; J3370; J3475; J3480; J3490; J7030; J7040; J7120